=== PATIENT | male | born 1945 | race African-American/Black ===

== ENCOUNTER 2016-12-16 01:13 | Emergency (ER) | payer OTHER ==
[~2016-12-16] VITALS: Ht 177.8 cm; Wt 55.0 kg
[2016-12-16 01:21] VITALS: BP 136/75; PULSE 104; RESP 16; TEMP 98.6; O2SAT 99
[2016-12-16] MEDS ORDERED: methylPREDNISolone SOD SUCC 125 MG/2 ML VIAL IVP ONE (01:30)
[2016-12-16] MEDS ORDERED: LOSA50TA2 PO (01:31)
[2016-12-16] MEDS ORDERED: MULT-65 PO (01:31)
[2016-12-16] MEDS ORDERED: TAMS0.4C4 PO (01:31)
--- NOTE | 2016-12-16 01:34 | PD ---
HPI Chief Complaint: Respiratory Distress Time Seen by Provider: 01:20 Travel History International Travel<30 days: No Contact w/Intl Traveler<30days: No Traveled to known affect area: No History of Present Illness HPI C/O SOB WORSENING OVER LAST 2 DAYS, THOUGH HE STATES IT HAS BEEN BOTHERING HIM SINCE HE HAD STOMACH CANCER REMOVAL 2 MONTHS AGO. DENIES FEVER/N/V/D/CP/ABD PAIN/ BUT DOES STATE THAT HE HAS NONPROD COUGH PFSH Past Medical History Cancer: Yes (STOMACH) Diminished Hearing: No Hypertension: Yes Tetanus Vaccination: Unknown Past Surgical History Abdominal Surgery: Yes (STOMACH REMOVAL, [place]) Other Surgery: Yes (RODS IN BACK.) Social History Alcohol Use: Yes (BEER 2-3 TIMES A WEEK.) Tobacco Use: Yes Substance Use: Yes (MARIJUIANA) Allergies-Medications (Allergen,Severity, Reaction): Coded Allergies: No Known Allergies (Unverified , 12/16/16) Reported Meds & Prescriptions Reported Meds & Active Scripts Active Reported Multi-Vitamin Daily (Multiple Vitamin) 1 Tab Tab 1 Tab PO DAILY Losartan-Hydrochlorothiazide 50-12.5 Mg Tab 1 Tab PO DAILY Tamsulosin (Tamsulosin HCl) 0.4 Mg Cap 0.4 Mg PO HS Review of Systems Respiratory: Positive: Cough, Shortness of Breath, Wheezing Physical Exam Narrative GENERAL: SKIN: Warm and dry. HEAD: Atraumatic. Normocephalic. EYES: Pupils equal and round. No scleral icterus. No injection or drainage. ENT: No nasal bleeding or discharge. Mucous membranes pink and moist. NECK: Trachea midline. No JVD. CARDIOVASCULAR: Regular rate and rhythm. RESPIRATORY: No accessory muscle use. MILD SCATTERED WHEEZES, CRACKLES TO RT LUNG MID TO LOWER ZONES GASTROINTESTINAL: Abdomen soft, non-tender, nondistended. Hepatic and splenic margins not palpable. MUSCULOSKELETAL: Extremities without clubbing, cyanosis, or edema. No obvious deformities. NEUROLOGICAL: Awake and alert. No obvious cranial nerve deficits. Motor grossly within normal limits. Five out of 5 muscle strength in the arms and legs. Normal speech. PSYCHIATRIC: Appropriate mood and affect; insight and judgment normal. Data Data Last Documented VS Vital Signs Date Time Temp Pulse Resp B/P Pulse Ox O2 Delivery O2 Flow Rate FiO2 12/16/16 01:24 100 Nasal Cannula 2 12/16/16 01:21 98.6 104 16 136/75 Orders Complete Blood Count With Diff (12/16/16 01:20) Comprehensive Metabolic Panel (12/16/16 01:20) B-Type Natriuretic Peptide (12/16/16 01:20) Act Partial Throm Time (Ptt) (12/16/16 01:20) Prothrombin Time / Inr (Pt) (12/16/16 01:20) Ckmb (Isoenzyme) Profile (12/16/16 01:20) Troponin I (12/16/16 01:20) Arterial Blood Gas (Abg) (12/16/16 01:20) Influenzae A/B Antigen (12/16/16 01:20) Iv Access Insert/Monitor (12/16/16 01:20) Electrocardiogram (12/16/16:20) Ecg Monitoring (12/16/16 01:20) Oximetry (12/16/16 01:20) Oxygen Administration (12/16/16 01:20) Chest, Single Ap (12/16/16 01:20) Methylprednisolone So Succ Inj (Solumedr (12/16/16 01:30) Albuterol Neb (Albuterol Neb) (12/16/16 01:30) D-Dimer (12/16/16 01:22) CKMB (12/16/16 01:30) CKMB% (12/16/16 01:30) Ct Pulmonary Angiogram (12/16/16 04:24) Iohexol 350 Inj (Omnipaque 350 Inj) (12/16/16 04:56) Labs Laboratory Tests Test 12/16/16 01:30 White Blood Count 7.8 TH/MM3 Red Blood Count 3.31 MIL/MM3 Hemoglobin 9.5 GM/DL Hematocrit 29.7 % Mean Corpuscular Volume 89.7 FL Mean Corpuscular Hemoglobin 28.7 PG Mean Corpuscular Hemoglobin 31.9 % Concent Red Cell Distribution Width 17.9 % Platelet Count 304 TH/MM3 Mean Platelet Volume 8.3 FL Neutrophils (%) (Auto) 61.5 % Lymphocytes (%) (Auto) 23.2 % Monocytes (%) (Auto) 14.0 % Eosinophils (%) (Auto) 0.7 % Basophils (%) (Auto) 0.6 % Neutrophils # (Auto) 4.8 TH/MM3 Lymphocytes # (Auto) 1.8 TH/MM3 Monocytes # (Auto) 1.1 TH/MM3 Eosinophils # (Auto) 0.1 TH/MM3 Basophils # (Auto) 0.0 TH/MM3 CBC Comment DIFF FINAL Differential Comment Prothrombin Time 11.2 SEC Prothromb Time International 1.0 RATIO Ratio Activated Partial 25.0 SEC Thromboplast Time D-Dimer Quantitative (PE/DVT) 9.12 MG/L FEU Blood Gas Puncture Site LT RADIAL Blood Gas Patient Temperature 98.6 Blood Gas HCO3 20 mmol/L Blood Gas Base Excess -3.4 mmol/L Blood Gas Oxygen Saturation 98 % Arterial Blood pH 7.44 Arterial Blood Partial 31 mmHg Pressure CO2 Arterial Blood Partial 273 mmHG Pressure O2 Arterial Blood Oxygen Content 13.8 Vol % Arterial Blood 1.6 % Carboxyhemoglobin Arterial Blood Methemoglobin 0.4 % Blood Gas Hemoglobin 9.6 G/DL Blood Gas Inspired Oxygen 21 % Sodium Level 140 MEQ/L Potassium Level 4.1 MEQ/L Chloride Level 107 MEQ/L Carbon Dioxide Level 18.8 MEQ/L Anion Gap 14 MEQ/L Blood Urea Nitrogen 19 MG/DL Creatinine 1.29 MG/DL Estimat Glomerular Filtration 67 ML/MIN Rate Random Glucose 76 MG/DL Calcium Level 7.9 MG/DL Total Bilirubin 0.6 MG/DL Aspartate Amino Transf 227 U/L (AST/SGOT) Alanine Aminotransferase 38 U/L (ALT/SGPT) Alkaline Phosphatase 576 U/L Total Creatine Kinase 432 U/L Creatine Kinase MB LESS THAN 0.5 NG/ML Creatine Kinase MB % 0.1 % Troponin I LESS THAN 0.02 NG/ML B-Type Natriuretic Peptide 67 PG/ML Total Protein 7.4 GM/DL Albumin 2.6 GM/DL MDM Medical Decision Making Medical Screen Exam Complete: Yes Emergency Medical Condition: Yes Medical Record Reviewed: Yes Interpretation(s) NSR 97, LAFB, NO STEMI PATTERN Differential Diagnosis COPD EXAC V PNA V PE V PULM EDEMA V ATYPICAL [place] Narrative Course NO E/O PNA/PULM EDEMA/NOR AZ...ALSO ON CAT SCAN NO PERICARDIAL EFFUSION AND NO PE. PATIENT HAD A COPD EPISODE WHICH CLEARED AND AFTER 5HRS OBSERVATION DID NOT REPEAT WILL D/C HOME WITH INHALER/STEROIDS Diagnosis Primary Impression: COPD FLARE RESOLVED Patient Instructions: COPD (Chronic Obstructive Pulmonary Disease) (ED), General Instructions Scripts Methylprednisolone Dosepak (Medrol Dosepak)4 Mg Dspk4 Mg PO DIRECTED #1 DSPK Per Pharmacist direction Prov:Davin Prabhakar MD 12/16/16 Azithromycin (Zithromax Z-Ilya)250 Mg Brty881 Mg PO DIRECTED #1 DSPK 500 MG (2 tabs) day 1, then 1 tab days 2-5. Prov:Davin Prabhakar MD 12/16/16 Albuterol 6.7 GM Inh (Proventil Hfa 6.7 GM Inh)90 Mcg/Act Aer1 Puff INH Q4H PRN (SHORTNESS OF BREATH) #1 INHALER Prov:Davin Prabhakar MD 12/16/16 Disposition: 01 DISCHARGE HOME Condition: Stable Davin Prabhakar MD Dec 16, 2016 01:34
[2016-12-16 01:40] LABS: BLOOD GAS BASE EXCESS -3.4 mmol/L (-2-2); BLOOD GAS CARBOXYHEMOGLOBIN 1.6 % (0-4); BLOOD GAS HCO3 20 mmol/L (22-26); BLOOD GAS METHEMOGLOBIN 0.4 % (0-2); BLOOD GAS O2 HGB SATURATION 98 % (90-100); BLOOD GAS OXYGEN CONTENT 13.8 Vol % (12.0-20.0); BLOOD GAS PCO2 31 mmHg (38-42); BLOOD GAS PO2 273 mmHG (61-120); BLOOD GAS TOTAL HGB 9.6 G/DL (12.0-16.0); CRITICAL VALUE NO; DRAW SITE LT RADIAL; FIO2 21 %; NUMBER OF ARTERIAL PUNCTURES 1; STAT YES; TEMP CORR TO 98.6; ULNAR PULSE PRESENT
[2016-12-16] MEDS: RESP: ALBUTEROL 2.5 MG/3 ML NEB (SCH) INH (01:43)
[2016-12-16 02:00] VITALS: BP 110/68; PULSE 102; RESP 26; O2SAT 100
--- NOTE | 2016-12-16 02:01 | RADRPT ---
EXAM DATE/TIME: 12/16/2016 01:42 [facility] COMPARISON: No previous studies available for comparison. INDICATIONS : Shortness of breath. MEDICAL HISTORY : Hypertension. Carcinoma, gastric. SURGICAL HISTORY : Carcinoma related stomach surgery ENCOUNTER: Initial ACUITY: 1 day PAIN SCORE: 0/10 LOCATION: Bilateral chest FINDINGS: A single view of the chest demonstrates the lungs to be symmetrically hyperaerated without evidence o f mass, infiltrate or effusion. No evidence of pneumothorax. The cardiomediastinal contours are unr emarkable. Both hemidiaphragms well delineated. Osseous structures are intact. CONCLUSION: The lungs are hyperaerated, but clear. Mt Lin MD on December 16, 2016 at 1:59 Board Certified Radiologist. This report was verified electronically.
[2016-12-16 02:03] LABS: PROTHROMBIN TIME - PATIENT 11.2 SEC (9.8-11.6)
[2016-12-16 02:07] LABS: AUTOMATED NEUTROPHIL # 4.8 TH/MM3 (1.8-7.7); BASOPHIL % 0.6 % (0.0-2.0); EOSINOPHIL # 0.1 TH/MM3 (0-0.4); EOSINOPHIL % 0.7 % (0.0-4.0); HEMATOCRIT 29.7 % (39.0-51.0); HEMO FLAGS DIFF FINAL; LYMPH % 23.2 % (9.0-44.0); LYMPHOCYTE # 1.8 TH/MM3 (1.0-4.8); MEAN CELL VOLUME 89.7 FL (80.0-100.0); MEAN CORPUSCULAR HEMOGLOBIN 28.7 PG (27.0-34.0); MEAN CORPUSCULAR HGB CONC 31.9 % (32.0-36.0); NEUT % 61.5 % (16.0-70.0); PLATELET COUNT 304 TH/MM3 (150-450); RED BLOOD COUNT 3.31 MIL/MM3 (4.50-5.90); RED CELL DISTRIBUTION WIDTH 17.9 % (11.6-17.2); WHITE BLOOD COUNT 7.8 TH/MM3 (4.0-11.0)
[2016-12-16 02:08] LABS: ALT (GPT) 38 U/L (12-78); ANION GAP 14 MEQ/L (5-15); AST (GOT) 227 U/L (15-37); BICARBONATE 18.8 MEQ/L (21.0-32.0); BLOOD UREA NITROGEN 19 MG/DL (7-18); CHLORIDE 107 MEQ/L (98-107); GLOMERULAR FILTRATION RATE 67 ML/MIN (>89); POTASSIUM 4.1 MEQ/L (3.5-5.1); SODIUM (NA) 140 MEQ/L (136-145)
[2016-12-16 02:12] LABS: ALKALINE PHOSPHATASE 576 U/L (45-117); CREATINE KINASE 432 U/L (39-308); TOTAL BILIRUBIN ADULT 0.6 MG/DL (0.2-1.0)
[2016-12-16 02:25] LABS: CKMB LESS THAN 0.5 NG/ML (0.5-3.6)
[2016-12-16 03:00] VITALS: BP 118/69; PULSE 100; RESP 26; O2SAT 100
[2016-12-16 04:00] VITALS: BP 128/75; PULSE 94; RESP 26; O2SAT 99
[2016-12-16] MEDS ORDERED: IOHEXOL 350 MG/ML 10 ML VIAL (for RAD DIAG) IV ONE (04:56)
[2016-12-16 05:30] VITALS: BP 122/70; PULSE 70; RESP 21; O2SAT 100
--- NOTE | 2016-12-16 05:54 | RADRPT ---
EXAM DATE/TIME: 12/16/2016 04:46 [facility] COMPARISON: No previous studies available for comparison. INDICATIONS : Shortness of breath with elevated D-Dimer. IV CONTRAST: 70 cc Omnipaque 350 (iohexol) IV RADIATION DOSE: 9.12 CTDIvol (mGy) MEDICAL HISTORY : Hypertension. Carcinoma, gastric. SURGICAL HISTORY : None. ENCOUNTER: Initial ACUITY: 1 day PAIN SCALE: 0/10 LOCATION: chest TECHNIQUE: Volumetric scanning of the chest was performed using a pulmonary embolism protocol MIP images were re constructed. Using automated exposure control and adjustment of the mA and/or kV according to patien t size, radiation dose was kept as low as reasonably achievable to obtain optimal diagnostic quality images. DICOM format image data is available electronically for review and comparison. FINDINGS: PULMONARY ARTERIES: No filling defects are seen in the pulmonary arteries through the segmental level. LUNGS: There is no consolidation or pneumothorax . No concerning pulmonary nodule is visualized. Anastomos is suture about the distance esophagus. PLEURAE: There is no pleural thickening or pleural effusion. MEDIASTINUM: There is good visualization of the great vessels of the middle mediastinum. No evidence of mediastin al or hilar adenopathy/mass. CONCLUSION: The study is negative for pulmonary embolism. Mt Lin MD on December 16, 2016 at 4:58 Board Certified Radiologist. This report was verified electronically.
[2016-12-16] MEDS ORDERED: ZITHTAB PO (06:05)
[2016-12-16] MEDS ORDERED: ALBU6.7H INH (06:05)
[2016-12-16] MEDS ORDERED: MEDR4PAK PO (06:05)
--- NOTE | 2016-12-16 07:50 | EKG ---
Date Performed: 12/16/2016 Time Performed: 01:55:06 PTAGE: 71 years EKG: Sinus rhythm WITH SINUS ARRHYTHMIA LEFT ANTERIOR FASCICULAR BLOCK ABNORMAL ECG PREVIOUS TRACING : 01/17/2000 06.24 DOCTOR: Glynn Hayes Interpretating Date/Time 12/16/2016 07:47:48
== END 2016-12-16 06:55 | disposition home or self-care (01) ==
LOC: NEPE 01:13
DX: J44.1 Chronic obstructive pulmonary disease with (acute) exacerbation (principal); I10 Essential (primary) hypertension; Z79.899 Other long term (current) drug therapy; Z72.0 Tobacco use; Z85.028 Personal history of other malignant neoplasm of stomach
CPT/HCPCS: 36600; 71010; 71275; 80053; 82550; 82552; 82805; 83880; 84484; 85025; 85379; 85610; 85730; 87804; 93005; 94640; 94664; 96374; 99285; J2930; J7613; Q9967

== ENCOUNTER 2017-01-03 14:09 | Inpatient (IN) | payer OTHER, MEDICARE ==
[~2017-01-03] VITALS: Ht 180.3 cm; Wt 60.1 kg
[~2017-01-03 14:09] MED LIST: ALBU6.7H INH; LOSA50TA2 PO; MEDR4PAK PO; MULT-65 PO; TAMS0.4C4 PO; ZITHTAB PO
[2017-01-03 14:20] VITALS: BP 135/78; PULSE 89; RESP 17; TEMP 98.6; O2SAT 99
[2017-01-03 15:08] VITALS: BP 114/65; PULSE 87; RESP 18; O2SAT 99
[2017-01-03] MEDS ORDERED: SODIUM CHLOR 0.9% 1000 ML INJ 1,000 ML IV SCH (15:08)
[2017-01-03] MEDS ORDERED: DIATRIZOATE MEGLUM/DIATRIZOATE SOD 9 ML CUP ONE (15:13)
[2017-01-03] MEDS ORDERED: ONDANSETRON HCL 4 MG/2 ML VIAL IVP ONE (15:15)
[2017-01-03] MEDS ORDERED: HYDROmorphone HCL PF 1 MG/ML VIAL IVS ONE ×2 (15:15→19:00)
[2017-01-03] MEDS ORDERED: SODIUM CHLORIDE 0.9% FLUSH 10 ML FLUSH IV FLUSH PRN ×2 (15:15→19:45)
--- NOTE | 2017-01-03 15:25 | PD ---
HPI Chief Complaint: Abdominal Pain Time Seen by Provider: 15:00 Travel History International Travel<30 days: No Contact w/Intl Traveler<30days: No Traveled to known affect area: No History of Present Illness HPI 71-year-old male with a history of gastric cancer, status post gastrectomy February 2016, who presents today with complaints of abdominal pain. Patient reports severe right sided of bowel pain. He also reports feeling lumps in his abdominal area that were not there couple weeks ago. He denies any fevers, chills. He denies any nausea or vomiting. He does state he has loose stools which is chronic in nature. There is no other complaints time my examination. PFSH Past Medical History Cancer: Yes (STOMACH) Cardiovascular Problems: Yes (CHF) Chemotherapy: No Diminished Hearing: No Hypertension: Yes Past Surgical History Abdominal Surgery: Yes (STOMACH REMOVAL, [place]) Other Surgery: Yes (RODS IN BACK.) Social History Alcohol Use: Yes (BEER 2-3 TIMES A WEEK.) Tobacco Use: Yes (2-3 cigs a week) Substance Use: Yes (MARIJUIANA every so often) Allergies-Medications (Allergen,Severity, Reaction): Coded Allergies: No Known Allergies (Unverified , 12/16/16) Reported Meds & Prescriptions Reported Meds & Active Scripts Active Medrol Dosepak (Methylprednisolone) 4 Mg Dspk 4 Mg PO DIRECTED Per Pharmacist direction Zithromax Z-Ilya (Azithromycin) 250 Mg Dspk 250 Mg PO DIRECTED 500 MG (2 tabs) day 1, then 1 tab days 2-5. Proventil Hfa 6.7 GM Inh (Albuterol Sulfate) 90 Mcg/Act Aer 1 Puff INH Q4H PRN Reported Multi-Vitamin Daily (Multiple Vitamin) 1 Tab Tab 1 Tab PO DAILY Losartan-Hydrochlorothiazide 50-12.5 Mg Tab 1 Tab PO DAILY Tamsulosin (Tamsulosin HCl) 0.4 Mg Cap 0.4 Mg PO HS Review of Systems Except as stated in HPI: all other systems reviewed are Neg General / Constitutional: No: Fever, Chills HENT: No: Headaches, Neck Pain Cardiovascular: No: Chest Pain or Discomfort, Palpitations Respiratory: No: Cough, Shortness of Breath Gastrointestinal: Positive: Diarrhea, Abdominal Pain (chronically loose stools. ), No: Nausea, Vomiting Genitourinary: No: Frequency, Dysuria Musculoskeletal: No: Weakness, Pain Neurologic: No: Weakness, Dizziness, Headache Physical Exam Narrative GENERAL: Well-developed well-nourished male in no acute respiratory distress. SKIN: Focused skin assessment warm/dry. HEAD: Atraumatic. Normocephalic. EYES: No scleral icterus. No injection or drainage. ENT: No nasal bleeding or discharge. Mucous membranes pink and moist. NECK: Trachea midline. No JVD. Supple. CARDIOVASCULAR: Regular rate and rhythm. No murmur appreciated. RESPIRATORY: No accessory muscle use. Clear to auscultation. GASTROINTESTINAL: Abdomen slightly distended with hardness palpated in the right lateral abdominal wall. No redness or drainage. There was tenderness to palpation. MUSCULOSKELETAL: No obvious deformities. No clubbing. No cyanosis. No edema. NEUROLOGICAL: Awake and alert. No obvious cranial nerve deficits. Motor grossly within normal limits. Normal speech. Data Data Last Documented VS Vital Signs Date Time Temp Pulse Resp B/P Pulse Ox O2 Delivery O2 Flow Rate FiO2 01/03/17 15:26 18 98 Room Air 01/03/17 15:08 87 114/65 01/03/17 14:20 98.6 Orders Complete Blood Count With Diff (01/03/17 15:08) Comprehensive Metabolic Panel (01/03/17 15:08) Lipase (01/03/17 15:08) Urinalysis - C+S If Indicated (01/03/17 15:08) Iv Access Insert/Monitor (01/03/17 15:08) Ecg Monitoring (01/03/17 15:08) Oximetry (01/03/17 15:08) Ondansetron Inj (Zofran Inj) (01/03/17 15:15) Sodium Chlor 0.9% 1000 Ml Inj (Ns 1000 M (01/03/17 15:08) Sodium Chloride 0.9% Flush (Ns Flush) (01/03/17 15:15) Hydromorphone Pf Inj (Dilaudid Pf Inj) (01/03/17 15:15) Diatrizoate Liq ( Gastroview Liq) (01/03/17 15:13) Oral Contrast - Adult (01/03/17 15:30) Electrocardiogram (01/03/17 15:00) Ct Abd/Pel W/O Iv Contrast (01/03/17 17:33) Hydromorphone Pf Inj (Dilaudid Pf Inj) (01/03/17 19:00) Admit Order (Ed Use Only) (01/03/17 19:03) Labs Laboratory Tests Test 01/03/17 01/03/17 15:15 16:00 White Blood Count 7.5 TH/MM3 Red Blood Count 3.20 MIL/MM3 Hemoglobin 9.3 GM/DL Hematocrit 29.8 % Mean Corpuscular Volume 93.4 FL Mean Corpuscular Hemoglobin 29.0 PG Mean Corpuscular Hemoglobin 31.1 % Concent Red Cell Distribution Width 18.2 % Platelet Count 226 TH/MM3 Mean Platelet Volume 8.2 FL Neutrophils (%) (Auto) 70.2 % Lymphocytes (%) (Auto) 11.6 % Monocytes (%) (Auto) 16.4 % Eosinophils (%) (Auto) 0.3 % Basophils (%) (Auto) 1.5 % Neutrophils # (Auto) 5.3 TH/MM3 Lymphocytes # (Auto) 0.9 TH/MM3 Monocytes # (Auto) 1.2 TH/MM3 Eosinophils # (Auto) 0.0 TH/MM3 Basophils # (Auto) 0.1 TH/MM3 CBC Comment DIFF FINAL Differential Comment Sodium Level 139 MEQ/L Potassium Level 4.3 MEQ/L Chloride Level 108 MEQ/L Carbon Dioxide Level 13.9 MEQ/L Anion Gap 17 MEQ/L Blood Urea Nitrogen 33 MG/DL Creatinine 2.53 MG/DL Estimat Glomerular Filtration 31 ML/MIN Rate Random Glucose 73 MG/DL Calcium Level 6.2 MG/DL Protein Corrected Calcium 6.2 MG/DL Total Bilirubin 1.0 MG/DL Aspartate Amino Transf 601 U/L (AST/SGOT) Alanine Aminotransferase 101 U/L (ALT/SGPT) Alkaline Phosphatase 508 U/L Total Protein 7.2 GM/DL Albumin 2.1 GM/DL Lipase 206 U/L Urine Color YELLOW Urine Turbidity HAZY Urine pH 5.5 Urine Specific [place] 1.023 Urine Protein 30 mg/dL Urine Glucose (UA) NEG mg/dL Urine Ketones NEG mg/dL Urine Occult Blood SMALL Urine Nitrite NEG Urine Bilirubin NEG Urine Urobilinogen 4.0 MG/DL Urine Leukocyte Esterase NEG Urine RBC 2 /hpf Urine WBC 4 /hpf Urine Squamous Epithelial 1 /hpf Cells Urine Amorphous Sediment RARE Urine Bacteria OCC /hpf Urine Hyaline Casts 17 /lpf Urine Mucus FEW /lpf Microscopic Urinalysis Comment CULT NOT INDICATED MDM Medical Decision Making Medical Screen Exam Complete: Yes Emergency Medical Condition: Yes Differential Diagnosis Recurrent abdominal/gastric cancer versus bowel obstruction versus pancreatitis Narrative Course 71-year-old male with a history of gastric cancer, presents today with worsening abdominal pain. The patient denies any fevers, chills. He denies any nausea vomiting. He does report loose stools that is not new. The patient has elevated liver enzymes. His protein corrected calcium was also 6.2. CT scan of the abdomen pelvis with oral contrast only shows what appears to be metastatic disease to his liver. There is also questionable pancreatic duct dilatation. He has received 2 doses of IV pain medication. There is a call out to the [facility] for admission. Diagnosis Primary Impression: Abdominal pain Additional Impressions: Metastatic adenocarcinoma Hypocalcemia Anemia Admitting Information Admitting Physician Requests: Admit Tarun Talamantes MD Jan 03, 2017 15:24
[2017-01-03 15:26] VITALS: RESP 18; O2SAT 98
[2017-01-03 16:12] LABS: AUTOMATED NEUTROPHIL # 5.3 TH/MM3 (1.8-7.7); BASOPHIL # 0.1 TH/MM3 (0-0.2); BASOPHIL % 1.5 % (0.0-2.0); EOSINOPHIL % 0.3 % (0.0-4.0); HEMATOCRIT 29.8 % (39.0-51.0); HEMO FLAGS DIFF FINAL; LYMPH % 11.6 % (9.0-44.0); LYMPHOCYTE # 0.9 TH/MM3 (1.0-4.8); MEAN CELL VOLUME 93.4 FL (80.0-100.0); MEAN CORPUSCULAR HGB CONC 31.1 % (32.0-36.0); MONO % 16.4 % (0.0-8.0); NEUT % 70.2 % (16.0-70.0); PLATELET COUNT 226 TH/MM3 (150-450); RED CELL DISTRIBUTION WIDTH 18.2 % (11.6-17.2); WHITE BLOOD COUNT 7.5 TH/MM3 (4.0-11.0)
[2017-01-03 16:26] LABS: BACTERIA, URINE OCC /hpf; BLOOD, URINE SMALL (NEG); COMMENT (UR) CULT NOT INDICATED; CULTURE IF INDICATED CULT NOT INDICATED; GLUCOSE,URINE NEG (NEG); HYALINE CAST, URINE 17 /lpf (RARE); KETONE, URINE NEG (NEG); MUCUS URINE FEW /lpf (OCC); NITRITE,URINE NEG (NEG); PH, URINE 5.5 (5.0-8.5); SQUAMOUS EPITHELIAL CELL URINE 1 /hpf (0-5); URINE COLOR YELLOW (YELLW/STRAW)
[2017-01-03 16:31] LABS: BICARBONATE 13.9 MEQ/L (21.0-32.0); POTASSIUM 4.3 MEQ/L (3.5-5.1)
[2017-01-03 16:46] LABS: CALCIUM-PROTEIN CORRECTED 6.2 MG/DL (8.5-10.1)
--- NOTE | 2017-01-03 18:47 | RADRPT ---
EXAM DATE/TIME: 01/03/2017 18:21 [facility] COMPARISON: CT PULMONARY ANGIOGRAM, December 16, 2016, 4:46. INDICATIONS : Abdomen pain. ORAL CONTRAST: Prescribed oral contrast ingested. RADIATION DOSE: 7.66 CTDIvol (mGy) MEDICAL HISTORY : Cardiovascular disease. Carcinoma, gastric. Congestive heart failure. SURGICAL HISTORY : None. Stomach ENCOUNTER: Initial ACUITY: 1 day PAIN SCALE: 4/10 LOCATION: Bilateral abdomen TECHNIQUE: Volumetric scanning of the abdomen and pelvis was performed. Using automated exposure control and ad justment of the mA and/or kV according to patient size, radiation dose was kept as low as reasonably achievable to obtain optimal diagnostic quality images. DICOM format image data is available electro nically for review and comparison. FINDINGS: The patient is status post partial gastrectomy and there is contrast seen within the esophagus. The l iver is enlarged and multiple hypodense ill-defined masses are suspected throughout the hepatic paren chyma. Spleen unremarkable. The pancreatic duct is mildly dilated up to 4 mm. Adrenal glands, kidneys unremarkable. Urinary bladder unremarkable. There is a small amount of free fluid in the pelvis. No evidence of bowel obstruction. There is streak artifact from L4-S1 posterior daniel and transpedicular s crew fixation. There is patchy atelectasis versus consolidation at the right lung base. CONCLUSION: 1. Hepatomegaly and ill-defined hepatic masses are suspected diffusely and concerning for metastatic disease. This is incompletely evaluated without contrast. 2. Postsurgical changes to the stomach with reflux of contrast into the esophagus. 3. Right basilar atelectasis versus airspace disease. 4. Ascites. 5. Mild dilatation of the pancreatic duct identified. Fredy Horn MD on January 03, 2017 at 18:42 Board Certified Radiologist. This report was verified electronically.
[2017-01-03] MEDS ORDERED: ONDANSETRON HCL 4 MG/2 ML VIAL IVP PRN (19:45)
[2017-01-03] MEDS ORDERED: NALOXONE HCL 0.4 MG/ML AMP IV PRN (19:45)
[2017-01-03 19:47] VITALS: BP 127/70; PULSE 70; RESP 16; O2SAT 100
[2017-01-03] MEDS ORDERED: CALCIUM GLUCONATE 10% 1 GM/10 ML VIAL IV PUSH ONE (20:15)
[2017-01-03 20:28] VITALS: BP 131/74; PULSE 63; RESP 16; O2SAT 100
[2017-01-03] MEDS ORDERED: CALCIUM GLUCONATE INJ 2 GM in SODIUM CHLORIDE 0.9% INJ 100 ML IV ONE (21:00)
--- NOTE | 2017-01-03 21:15 | HHI.HP ---
HPI Service [facility] Primary [facility] Physician Unknown Admission Diagnosis abdominal pain, metastatic adenocarcinoma, hypocalcemia, acute on ch Diagnoses: Chief Complaint: sob, and bilateral lower extremity swelling. Travel History International Travel<30 Days: No Contact w/Intl Traveler <30 Da: No Traveled to Known Affected Are: No History of Present Illness Written by KARIN Harris acting as scribe for [Daily] on 01/03/17 at 21: 06. 71 y/o male with a history of gastric cancer, htn, bph, and copd presented to the ED with complaints of sob all the time, and swelling in his legs for the last 2 months. He denies any abdominal pain, nausea or vomiting, He states he has chronic diarrhea since his gastrectomy. He also complains of red stools in the toilet bowel. Patient is a poor historian and is unable to recall recent events, patient did receive Dilaudid prior to examination and may be contributing to the usableness to recall information. He denies any chest pain, or calf pain. Patient states he lives alone. Review of Systems Constitutional: DENIES: Fever, Chills Respiratory: COMPLAINS OF: Shortness of breath, DENIES: Cough Cardiovascular: COMPLAINS OF: Lower Extremity Edema, DENIES: Chest pain Gastrointestinal: COMPLAINS OF: Bloody stools, DENIES: Abdominal pain, Nausea , Vomiting Genitourinary: DENIES: Hematuria, Dysuria Musculoskeletal: DENIES: Back pain, Neck pain Integumentary: DENIES: Rash Hematologic/lymphatic: DENIES: Lymphadenopathy Neurologic: DENIES: Headache, Localized weakness Past Family Social History Past Medical History gastric cancer htn bph copd Past Surgical History Gastrectomy Feb 2016 Rods in back Reported Medications Reported Meds & Active Scripts Active Medrol Dosepak (Methylprednisolone) 4 Mg Dspk 4 Mg PO DIRECTED Per Pharmacist direction Zithromax Z-Ilya (Azithromycin) 250 Mg Dspk 250 Mg PO DIRECTED 500 MG (2 tabs) day 1, then 1 tab days 2-5. Proventil Hfa 6.7 GM Inh (Albuterol Sulfate) 90 Mcg/Act Aer 1 Puff INH Q4H PRN Reported Multi-Vitamin Daily (Multiple Vitamin) 1 Tab Tab 1 Tab PO DAILY Losartan-Hydrochlorothiazide 50-12.5 Mg Tab 1 Tab PO DAILY Tamsulosin (Tamsulosin HCl) 0.4 Mg Cap 0.4 Mg PO HS Allergies: Coded Allergies: No Known Allergies (Unverified , 12/16/16) Active Ordered Medications Current Medications Medications (Trade) Dose Ordered Sig/Musa Route Start Time Stop Time Status Last Admin (NS 1000 ml Inj) 1,000 ml @ 125 mls/hr Q8H IV 01/03/17 15:08 01/03/17 23:07 01/03/17 15:24 (NS Flush) 2 ml UNSCH PRN IV FLUSH 01/03/17 19:45 (NS Flush) 2 ml BID IV FLUSH 01/03/17 21:00 (Zofran Inj) 4 mg Q6H PRN IVP 01/03/17 19:45 Naloxone HCl 0.4 mg 0.4 mg UNSCH PRN IV 01/03/17 19:45 (Calcium Gluconate Inj/NS Inj) 120 ml @ 120 mls/hr ONCE ONCE IV 01/03/17 21:00 01/03/17 21:59 Family History Cancer runs in his family, but is unsure what kind. Social History Tobacco use: 2-3 cigarette after surgery in February, prior 1 ppd Alcohol use: Denies Illicit drug use: Denies He lives alone, sister lives in [facility], children live in [place] Physical Exam Vital Signs Vital Signs Date Time Temp Pulse Resp B/P Pulse Ox O2 Delivery O2 Flow Rate FiO2 01/03/17 20:28 63 16 131/74 100 Room Air 01/03/17 19:48 16 01/03/17 19:47 70 16 127/70 100 Room Air 01/03/17 15:26 18 98 Room Air 01/03/17 15:08 87 18 114/65 99 Room Air 01/03/17 14:58 18 01/03/17 14:20 98.6 89 17 135/78 99 Physical Exam GENERAL: This is a well-nourished, well-developed patient, who is short of breath. SKIN: No rashes, ecchymoses or lesions. Cool and dry. HEAD: Atraumatic. Normocephalic. EYES: Pupils equal round and reactive. Extraocular motions intact. No scleral icterus. No injection or drainage. ENT: Nose without bleeding, purulent drainage or septal hematoma. Airway patent. NECK: Trachea midline. No JVD or lymphadenopathy. Supple, nontender, no meningeal signs. CARDIOVASCULAR: Regular rate and rhythm without murmurs, gallops, or rubs. RESPIRATORY: Clear to auscultation. Breath sounds equal bilaterally. No wheezes , rales, or rhonchi. GASTROINTESTINAL: Abdomen soft, non-tender, nondistended. No hepato-splenomegaly , or palpable masses. No guarding. MUSCULOSKELETAL:Bilateral +1 pedal edema. No calf tenderness NEUROLOGICAL: Awake, alert and disoriented at times. Motor and sensory grossly within normal limits. Normal speech. Laboratory Laboratory Tests Test 01/03/17 01/03/17 15:15 16:00 White Blood Count 7.5 Red Blood Count 3.20 Hemoglobin 9.3 Hematocrit 29.8 Mean Corpuscular Volume 93.4 Mean Corpuscular Hemoglobin 29.0 Mean Corpuscular Hemoglobin 31.1 Concent Red Cell Distribution Width 18.2 Platelet Count 226 Mean Platelet Volume 8.2 Neutrophils (%) (Auto) 70.2 Lymphocytes (%) (Auto) 11.6 Monocytes (%) (Auto) 16.4 Eosinophils (%) (Auto) 0.3 Basophils (%) (Auto) 1.5 Neutrophils # (Auto) 5.3 Lymphocytes # (Auto) 0.9 Monocytes # (Auto) 1.2 Eosinophils # (Auto) 0.0 Basophils # (Auto) 0.1 CBC Comment DIFF FINAL Differential Comment Sodium Level 139 Potassium Level 4.3 Chloride Level 108 Carbon Dioxide Level 13.9 Anion Gap 17 Blood Urea Nitrogen 33 Creatinine 2.53 Estimat Glomerular Filtration 31 Rate Random Glucose 73 Calcium Level 6.2 Protein Corrected Calcium 6.2 Total Bilirubin 1.0 Aspartate Amino Transf 601 (AST/SGOT) Alanine Aminotransferase 101 (ALT/SGPT) Alkaline Phosphatase 508 Total Protein 7.2 Albumin 2.1 Lipase 206 Urine Color YELLOW Urine Turbidity HAZY Urine pH 5.5 Urine Specific [place] 1.023 Urine Protein 30 Urine Glucose (UA) NEG Urine Ketones NEG Urine Occult Blood SMALL Urine Nitrite NEG Urine Bilirubin NEG Urine Urobilinogen 4.0 Urine Leukocyte Esterase NEG Urine RBC 2 Urine WBC 4 Urine Squamous Epithelial 1 Cells Urine Amorphous Sediment RARE Urine Bacteria OCC Urine Hyaline Casts 17 Urine Mucus FEW Microscopic Urinalysis Comment CULT NOT INDICATED Result Diagram: 01/03/17 1515 01/03/17 1515 Imaging Last Impressions Abdomen/Pelvis CT 01/03/17 1733 Signed Impressions: Service Date/Time: Tuesday, January 03, 2017 18:21 - CONCLUSION: 1. Hepatomegaly and ill-defined hepatic masses are suspected diffusely and concerning for metastatic disease. This is incompletely evaluated without contrast. 2. Postsurgical changes to the stomach with reflux of contrast into the esophagus. 3. Right basilar atelectasis versus airspace disease. 4. Ascites. 5. Mild dilatation of the pancreatic duct identified. Fredy Horn MD Assessment and Plan Problem List: (1) Metastatic adenocarcinoma ICD Code: C79.9 Status: Acute (2) Abdominal pain ICD Code: R10.9 Status: Acute (3) Hypocalcemia ICD Code: E83.51 Status: Acute (4) Lower extremity edema ICD Code: R60.0 Status: Acute (5) Dyspnea ICD Code: R06.00 Status: Acute (6) Low bicarbonate level ICD Code: E87.8 Status: Acute Assessment and Plan 71 y/o male with a history of gastric cancer, htn, bph, and copd presented to the ED with complaints of sob all the time, and swelling in his legs for the last 2 months. Abdominal pain with transaminitis, possible metastatic adenocarcinoma, patient with a history of gastric cancer AST 601, ALT [address] shows Hepatomegaly and ill-defined hepatic masses are suspected diffusely and concerning for metastatic disease. -Consult medical oncologist for recommendations Dyspnea, chronic for the last 2 months -Chest x ray ordered -O2 as needed - likely due to metabolic acidosis with respiratory compensation contributing to dyspnea- correct with bicarb drip, ivp as needed Hypocalcemia/ low bicarb, calcium 6.2, bicarb 13.9 -2 grams calcium gluconate ordered -IVF with D5 and bicarb -BMP in AM, and trend - calcium carbonate po; aggressive iv replacements Lower extremity edema, +1 pedal edema noted -Bilateral DVT US ordered due to patients history of cancer -Elevated while in bed Hematochezia, patient states red stools and blood in toilet bowl Hgb 9.3 -BMP in AM, and trend -Hemoccult stool HTN, chronic, currently stable -Awaiting medication reconciliation, will order home medications when complete -Will order PRNs if needed DVT prophylaxis: SCDs This note was transcribed by scribe [Carine dEwards]. I, Dr. Destiney Ambrosio personally performed the history, physical exam, and medical decision making; and confirmed the accuracy of the information in the transcribed note. Authenticated by Dr. Destiney Ambrosio on 01/03/17 at 21:06. Discussed Condition With Patient, RN and ER physician Physician Certification 2 Midnight Certification Type: Admission for Inpatient Services Order for Inpatient Services The services are ordered in accordance with Medicare regulations or non- Medicare payer requirements, as applicable. In the case of services not specified as inpatient-only, they are appropriately provided as inpatient services in accordance with the 2-midnight benchmark. Estimated LOS (days): 3 days is the estimated time the patient will need to remain in the hospital, assuming treatment plan goals are met and no additional complications. Post-Hospital Plan: Not yet determined Carine Edwards Jan 03, 2017 21:15 Destiney Ambrosio MD Jan 04, 2017 07:24
--- NOTE | 2017-01-03 21:50 | RADRPT ---
EXAM DATE/TIME: 01/03/2017 21:15 [facility] COMPARISON: CHEST SINGLE AP, December 16, 2016, 1:42. INDICATIONS : Shortness of breath. MEDICAL HISTORY : Cardiovascular disease. Carcinoma, gastric. Congestive heart failure. SURGICAL HISTORY : None. ENCOUNTER: Initial ACUITY: 1 day PAIN SCORE: 0/10 LOCATION: Bilateral chest FINDINGS: Moderate elevation of the right hemidiaphragm with bilateral basilar atelectasis. Heart size normal. CONCLUSION: Basilar atelectasis and elevation of the right hemidiaphragm. Fredy Horn MD on January 03, 2017 at 21:48 Board Certified Radiologist. This report was verified electronically.
[2017-01-03] MEDS: SODIUM BICARBONATE 8.4% INJ 100 MEQ in DEXTROSE 5% IN WATE 1000ML INJ 1,000 ML IV SCH ×2 (22:30)
[2017-01-03] MEDS: SODIUM CHLORIDE 0.9% FLUSH 10 ML FLUSH IV FLUSH SCH (22:30)
--- NOTE | 2017-01-03 22:36 | RADRPT ---
EXAM DATE/TIME: 01/03/2017 21:52 [facility] COMPARISON: No previous studies available for comparison. INDICATIONS : Bilateral leg swelling. MEDICAL HISTORY : Hypertension. Congestive heart failure. Stomach cancer. Melena. Dyspnea. SURGICAL HISTORY : Stomach removal. ENCOUNTER: Initial ACUITY: 1 day PAIN SCORE: 7/10 LOCATION: Bilateral legs. TECHNIQUE: Venous ultrasound of the left and right leg was performed from the inguinal ligament to the proximal calf. Real-time, color Doppler and spectral tracing, compression and augmentation techniques were us ed. FINDINGS: RIGHT LEG: There is normal compressibility of the deep venous system from the inguinal region to the proximal ca lf. No echogenic clot is seen in the lumen of the common femoral, femoral, popliteal, and posterior tibial veins. There is a normal response of the venous system to proximal and distal augmentation an d respiration. LEFT LEG: There is normal compressibility of the deep venous system from the inguinal region to the proximal ca lf. No echogenic clot is seen in the lumen of the common femoral, femoral, popliteal, and posterior tibial veins. There is a normal response of the venous system to proximal and distal augmentation an d respiration. CONCLUSION: Normal examination. Fredy Horn MD on January 03, 2017 at 22:34 Board Certified Radiologist. This report was verified electronically.
[2017-01-04] VITALS (8 sets, daily range): BP systolic 114–160; BP diastolic 70–87; PULSE 64–103; RESP 18; TEMP 97.1–99; O2SAT 93–99
[2017-01-04 02:00] LABS: BICARBONATE 11.9 MEQ/L (21.0-32.0); POTASSIUM 5.8 MEQ/L (3.5-5.1)
[2017-01-04] MEDS ORDERED: SODIUM BICARBONATE 8.4% INJ 50 MEQ/50 ML SYR IV PUSH ONE (03:00)
[2017-01-04] MEDS ORDERED: DEXTROSE 50% IN WATER 50 ML VIAL(D50) IV PUSH ONE (03:00)
[2017-01-04] MEDS ORDERED: CALCIUM GLUCONATE INJ 1 GM in SODIUM CHLORIDE 0.9% INJ 100 ML IV ONE ×3 (03:00→18:00)
[2017-01-04] MEDS ORDERED: CALCIUM GLUCONATE 10% 1 GM/10 ML VIAL IV PUSH ONE ×2 (03:00→03:30)
[2017-01-04] MEDS ORDERED: SODIUM POLYSTYRENE SULFONATE SUSP 15 GM/60 ML CUP PO ONE (03:00)
[2017-01-04] MEDS ORDERED: INSULIN HUMAN REGULAR 1,000 UNITS/10 ML VIAL IV PUSH ONE (03:00)
[2017-01-04] MEDS ORDERED: CALCIUM CARBONATE 1.25 GM (CA 500 MG) TAB PO ONE (03:00)
[2017-01-04] MEDS ORDERED: DEXTROSE 50% IN WATER 50 ML SYRINGE IV ONE (03:15)
[2017-01-04 06:50] LABS: AUTOMATED NEUTROPHIL # 6.1 TH/MM3 (1.8-7.7); BASOPHIL % 0.5 % (0.0-2.0); HEMATOCRIT 31.2 % (39.0-51.0); LYMPH % 10.1 % (9.0-44.0); LYMPHOCYTE # 0.8 TH/MM3 (1.0-4.8); MEAN CELL VOLUME 94.6 FL (80.0-100.0); MEAN CORPUSCULAR HGB CONC 31.7 % (32.0-36.0); MONO % 12.1 % (0.0-8.0); NEUT % 77.3 % (16.0-70.0); PLATELET COUNT 219 TH/MM3 (150-450); RED CELL DISTRIBUTION WIDTH 18.5 % (11.6-17.2); WHITE BLOOD COUNT 7.9 TH/MM3 (4.0-11.0)
[2017-01-04 07:12] LABS: HEMO FLAGS AUTO DIFF
[2017-01-04 07:15] LABS: ALT (GPT) 153 U/L (12-78); ANION GAP 19 MEQ/L (5-15); AST (GOT) 936 U/L (15-37); BICARBONATE 12.6 MEQ/L (21.0-32.0); BLOOD UREA NITROGEN 36 MG/DL (7-18); CHLORIDE 107 MEQ/L (98-107); GLOMERULAR FILTRATION RATE 28 ML/MIN (>89); POTASSIUM 5.1 MEQ/L (3.5-5.1); SODIUM (NA) 139 MEQ/L (136-145)
[2017-01-04 07:17] LABS: ALKALINE PHOSPHATASE 494 U/L (45-117); TOTAL BILIRUBIN ADULT 1.1 MG/DL (0.2-1.0)
[2017-01-04 08:56] LABS: KERATOCYTES OCC (NORMAL); OVALOCYTES 1+ (NORMAL); PLATELET ESTIMATE SMEAR NORMAL (NORMAL); PLATELET MORPHOLOGY NORMAL (NORMAL); SCAN/DIFF AUTO DIFF CONFIRMED; TARGET CELLS 1+ (NORMAL)
[2017-01-04] MEDS: CALCIUM CARBONATE 1.25 GM (CA 500 MG) TAB PO SCH ×2 (08:57→20:10)
[2017-01-04] MEDS: SODIUM CHLORIDE 0.9% FLUSH 10 ML FLUSH IV FLUSH SCH ×2 (08:57→20:10)
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
[2017-01-04 12:02] LABS: BICARBONATE 17.5 MEQ/L (21.0-32.0); POTASSIUM 4.3 MEQ/L (3.5-5.1)
[2017-01-04] MEDS ORDERED: ALBUTEROL SULFATE 90 MCG/ACT HFA 8 GM INHALER INH PRN (14:00)
--- NOTE | 2017-01-04 14:00 | HHI.PR ---
Subjective Remarks Pt seen around 1400 Patient tells me he has had a bowel movement and needs his diaper changed. He tells me his pain is a 10 out of 10. Sister and [id number] are in the room. They tell me he was diagnosed with gastric cancer in February of last year. Per sister, he does not have an oncologist. Patient has been experiencing shortness of breath and abdominal pain. Patient tells me that his stomach "hurts" and has been hard. He later tells me that he no longer wants to talk until he is ready. He is focused on getting his diaper changed. I did talk to his nurse and notified her of this. His sister tells me that he does not take any pain medications at home Objective Vitals Vital Signs Date Time Temp Pulse Resp B/P Pulse Ox O2 Delivery O2 Flow Rate FiO2 01/04/17 12:00 97.5 93 18 126/75 99 01/04/17 08:32 98.0 88 18 119/72 98 01/04/17 04:00 97.6 70 18 118/75 99 01/04/17 00:44 Room Air 01/04/17 00:41 97.1 71 18 160/87 96 01/04/17 00:30 69 01/03/17 20:28 63 16 131/74 100 Room Air 01/03/17 19:48 16 01/03/17 19:47 70 16 127/70 100 Room Air 01/03/17 15:26 18 98 Room Air 01/03/17 15:08 87 18 114/65 99 Room Air 01/03/17 14:58 18 01/03/17 14:20 98.6 89 17 135/78 99 I/O 01/03/17 01/03/17 01/03/17 01/04/17 01/04/17 01/04/17 07:00 15:00 23:00 07:00 15:00 23:00 Intake Total 479 ml Balance 479 ml Intake IV Total 479 ml # Voids 0 # Bowel Movements 1 Result Diagram: 01/04/17 0515 01/04/17 1110 Imaging Last Impressions Abdomen/Pelvis CT 01/03/17 3413 Signed Impressions: Service Date/Time: Tuesday, January 03, 2017 18:21 - CONCLUSION: 1. Hepatomegaly and ill-defined hepatic masses are suspected diffusely and concerning for metastatic disease. This is incompletely evaluated without contrast. 2. Postsurgical changes to the stomach with reflux of contrast into the esophagus. 3. Right basilar atelectasis versus airspace disease. 4. Ascites. 5. Mild dilatation of the pancreatic duct identified. Fredy Horn MD Lower Extremity Ultrasound 01/03/17 0000 Signed Impressions: Service Date/Time: Tuesday, January 03, 2017 21:52 - CONCLUSION: Normal examination. Fredy Horn MD Chest X-Ray 01/03/17 0000 Signed Impressions: Service Date/Time: Tuesday, January 03, 2017 21:15 - CONCLUSION: Basilar atelectasis and elevation of the right hemidiaphragm. Fredy Horn MD Objective Remarks GENERAL: thin, malnourished AA male, appears very uncomfortable. SKIN: Cool and dry. HEAD: Atraumatic. Normocephalic. EYES: Extraocular motions intact. ENT: Nose without drainage. Airway patent. NECK: Trachea midline. CARDIOVASCULAR: deferred per pt's request. RESPIRATORY: moving air, on RA. GASTROINTESTINAL: Abdomen very tender to palpation, voluntary guarding, epigastric area somewhat endurated. MUSCULOSKELETAL:moving extremities NEUROLOGICAL: Awake, alert. refusing some of exam. Motor and sensory grossly within normal limits. Normal speech. A/P Problem List: (1) Metastatic adenocarcinoma ICD Code: C79.9 Status: Acute (2) Abdominal pain ICD Code: R10.9 Status: Acute (3) Hypocalcemia ICD Code: E83.51 Status: Acute (4) Lower extremity edema ICD Code: R60.0 Status: Acute (5) Dyspnea ICD Code: R06.00 Status: Acute (6) Low bicarbonate level ICD Code: E87.8 Status: Acute Assessment and Plan 71 y/o male with a history of gastric cancer, htn, bph, and copd presented to the ED with complaints of sob all the time, and swelling in his legs for the last 2 months. Abdominal pain with transaminitis, possible metastatic adenocarcinoma, patient with a history of gastric cancer AST 601, ALT [address] shows Hepatomegaly and ill-defined hepatic masses are suspected diffusely and concerning for metastatic disease. -Consult medical oncologist in place, awaiting recommendations -pain control w percocets and IV dilaudid prn. Palliative care team about to go see patient as well. Discussed w Dr. Fox. Dyspnea, chronic for the last 2 months -Chest x ray atelectasis and elevation of the right hemidiaphragm -O2 as needed - likely due to metabolic acidosis with respiratory compensation contributing to dyspnea- correct with bicarb drip, ivp as needed Hypocalcemia/ low bicarb, calcium 6.2, bicarb 13.9 -s/p 2 grams calcium gluconate -IVF with D5 and bicarb -BMP in AM, and trend - calcium carbonate po; aggressive iv replacements Lower extremity edema, +1 pedal edema noted -Bilateral DVT US neg -Elevated while in bed Hematochezia, patient states red stools and blood in toilet bowl Hgb 9.3 -BMP in AM, and trend -Hemoccult stool HTN, chronic, currently stable -Awaiting medication reconciliation, will order home medications when complete -Will order PRNs if needed DVT prophylaxis: SCDs hypocalcemia: 6.9. give calcium gluconate IV x 1 and replace w tums BID. Flor Rai MD Jan 04, 2017 14:00
--- NOTE | 2017-01-04 14:01 | PD.CONS ---
Consult Service Palliative Care . Consult Requested By KARIN Harris Dr. . Primary Care Physician Unknown . Reason for Consultation a. To assist with evaluation and management of symptoms including: pain; dyspnea; constipation/diarrhea; lower extermity swelling. b. To assist medical decision maker(s) with: better understanding of current medical conditions; weighing benefits/burdens of medical treatment options; making medical treatment decisions. . HPI History of Present Illness Mr. Schwarz is a 71-year-old male with a history of acid or cancer status post gastrectomy her partial gastrectomy in February 2016; hypertension; benign prostatic hypertrophy; CHF; and COPD; who presented to [facility] Emergency Department on 01/03/17 complaining of severe right sided abdominal pain; shortness of breath; and a 2 month history of swelling of his lower extremities. He also complained that he was able to feel "lumps" in his abdominal area that had not been there just a couple of weeks ago. He denied nausea, vomiting, fevers, chills, chest pain, or calf pain He did report red stools in the toilet bowl. He did report having some loose stools but those have become somewhat chronic for him. It should be noted that the patient is a poor historian and different clinicians have been given different histories since he presented in the emergency department. The patient's sister is at bedside at time of my visit. She reports that the patient underwent a partial gastrectomy in Feb 2016 at [facility]. About 75% of his stomach was removed at the time. He was seen by clinical oncology. Chemotherapy was recommended but the patient refused. He has not had oncology follow up since the surgery. He gets his primary care through [facility] and has visited the PCP office, but family tells me it has been a different physician each time. He saw the [facility] physician on 01/03/17 and it was that physician who told them to come to the ED. Sister tells me that the patient was doing reasonably well until 3-4 weeks ago. He was living independently, doing his own grocery shopping, and riding around on his bicycle. Primarily because of increasing SOB, he has become mostly homebound over the last 3 weeks. Sister says that the patient alternates between constipation and diarrhea since his surgery. Because of his gastrectomy , he is supposed to eat small amounts at a time and eat soft foods. When he doesn't he gets cramps like the ones he is having now. Weight has gone from his usual 145-150 down to 121 since his diagnosis of cancer. Initial vital signs in the emergency department were as follows > temperature 98.6; pulse 87; respiratory rate 18; blood pressure 114/65; pulse oximetry 98% on room air Physical exam by the emergency repair department manager noted the following > patient was well-developed and well-nourished in no acute distress. No other bleeding was reported. Abdominal exam found the patient slightly distended with hardness palpated in the right lateral abdominal wall. There was no tenderness to palpation . Cardiovascular exam, respiratory exam, and other system exams were unremarkable. Initial diagnostic testing showed the following: * CBC showed WBC 7.5; hemoglobin 9.3; platelet count 226 * Chemistry profile showed sodium 139; potassium 4.3; chloride 108; CO2 13.9; anion gap 17; BUN 33; creatinine 2.53; GFR 31; glucose 73; calcium 6.2 * Liver function studies show total bilirubin 1.0; AST 601; ALT 101; alkaline phosphatase 508; total protein 7.2; albumin 2.1 * Lipase was 206 * Urinalysis was remarkable for some small occult blood, elevated urobilinogen. * CXR revealed basilar atelectasis and elevation of the right danielito-diaphragm. The patient received 2 doses of hydromorphone in the emergency department. He was admitted to the hospitalist service. Medical oncology was consulted. The patient has been given IV fluids with supplemental calcium and carbonate. Lower extremity ultrasound was performed to evaluate the lower extremity edema. No evidence of DVT was noted. Since admission the CBC has been stable. CO2 is increased to 17.5. Anion gap remains elevated at 16. BUN and creatinine are essentially unchanged. AST has increased to 936. ALT has increased to 153. Alkaline phosphatase remains unchanged. At time of my visit the patient is having severe abdominal pain. He said he was given something to help move his bowels and he is now cramping and passing very loose stool. . Function/Cognitive Trajectory Sister tells me that the patient was doing reasonably well until 3-4 weeks ago. He was living independently, doing his own grocery shopping, and riding around on his bicycle. Primarily because of increasing SOB, he has become mostly homebound over the last 3 weeks. Sister says that the patient alternates between constipation and diarrhea since his surgery. Because of his gastrectomy , he is supposed to eat small amounts at a time and eat soft foods. When he doesn't he gets cramps like the ones he is having now. Weight has gone from his usual 145-150 down to 121 since his diagnosis of cancer. . . Review of Systems ROS Limitations: Clinical Condition (Patient is in pain and does not want to go over ROS. ROS taken from medical record and from history provided by sister. ) Constitutional: COMPLAINS OF: Weight loss (Weight has gone from 145 to 121 since diagnosis of cancer. ), Change in appetite, Pain, Generalized weakness Eyes: COMPLAINS OF: Vision loss (Wears glasses) Ears, nose, mouth, throat: DENIES: Hearing loss Respiratory: COMPLAINS OF: Shortness of breath, DENIES: Cough Cardiovascular: COMPLAINS OF: Dyspnea on Exertion, Lower Extremity Edema, DENIES: Orthopnea Gastrointestinal: COMPLAINS OF: Abdominal pain, Black stools, Bloody stools, Constipation, Diarrhea, Bloating, DENIES: Nausea, Vomiting Genitourinary: COMPLAINS OF: Dribbling, Decreased stream, DENIES: Hematuria, Dysuria Musculoskeletal: COMPLAINS OF: Back pain, DENIES: Neck pain Neurologic: DENIES: Headache Past Family Social History Coded Allergies: No Known Allergies (Unverified , 12/16/16) Past Medical History gastric cancer s/p gastrectomy Feb 2016 htn bph copd . Past Surgical History Gastrectomy Feb 2016 Back surgery -- has Rods in back Reported Medications Pre-hospital medications included the following: Medrol Dosepak (Methylprednisolone) 4 Mg Dspk 4 Mg PO A Zithromax Z-Ilya (Azithromycin) 250 Mg Dspk 250 Mg PO DIRECTED Proventil Hfa 6.7 GM Inh (Albuterol Sulfate) 90 Mcg/Act Aer 1 Puff INH Q4H PRN Multi-Vitamin Daily (Multiple Vitamin) 1 Tab Tab 1 Tab PO DAILY Losartan-Hydrochlorothiazide 50-12.5 Mg Tab 1 Tab PO DAILY Tamsulosin (Tamsulosin HCl) 0.4 Mg Cap 0.4 Mg PO HS . Current Medications Medications (Trade) Dose Ordered Sig/Musa Route Start Time Stop Time Status Last Admin (NS Flush) 2 ml UNSCH PRN IV FLUSH 01/03/17 19:45 (NS Flush) 2 ml BID IV FLUSH 01/03/17 21:00 7/18/17 08:57 (Zofran Inj) 4 mg Q6H PRN IVP 01/03/17 19:45 Naloxone HCl 0.4 mg 0.4 mg UNSCH PRN IV 01/03/17 19:45 (Sodium Bicarbonate 8.4% Inj/D5W 1000 ml Inj) 1,100 ml @ 42 mls/hr Q24H IV 01/03/17 21:45 01/03/17 22:30 (Oscal) 1,000 mg Q12HR PO 01/04/17 09:00 01/04/17 08:57 . Family History Cancer runs in his family, but is unsure what kind. Substance Use Tobacco: Patient was a one pack per day smoker until his gastrectomy in February 2016. He has been smoking about 2-3 cigarettes per week since that time Alcohol: Drinks 1-4 drinks per day. Prescription med abuse: No known abuse Illicits: No known illicit drug use. . Psychosocial History * Originally from [place] * GED education * for 20+ years, still legally * Parents . 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 Spiritual/Cultural Factors * Sabianist jean-pierre- declines returns clerk visits . Living Will: Never completed Health Care Surrogate: Copy in medical record Durable Power of Machine Puller: Never completed Date completed: Health Care surrogate designation completed 01/04/17. . Health Care Surrogate(s): Patient designated his sister, Sherly Zee as primary health care surrogate and son, Timmy Schwarz JR as alternate. * Sherly Zee- [phone] * Timmy EDGAR- [phone] . Documented care wishes: No written documentation of health care preferences/goals . Today's verbally stated goals: Patient is in pain at time of my visit. He wants to know more about his cancer before discussion goals. . Family/friends goals: Sister tells me that she spoke with the patient earlier today. though he had declined chemotherapy when first offered at time of diagnosis, he would be willing to consider chemo now if the doctors thought it would help. He has stated he would not want radiation. . Ethical and Legal Issues Patient is capacitated to make his own health care decisions. Recommend joint decision making to include his sister -- Sherly Zee --the health care surrogate. . Physical Exam Vital Signs Date Time Temp Pulse Resp B/P Pulse Ox O2 Delivery O2 Flow Rate FiO2 01/04/17 12:00 97.5 93 18 126/75 99 01/04/17 08:32 98.0 88 18 119/72 98 01/04/17 04:00 97.6 70 18 118/75 99 01/04/17 00:44 Room Air 01/04/17 00:41 97.1 71 18 160/87 96 01/04/17 00:30 69 01/03/17 20:28 63 16 131/74 100 Room Air 01/03/17 19:48 16 01/03/17 19:47 70 16 127/70 100 Room Air 01/03/17 15:26 18 98 Room Air 01/03/17 15:08 87 18 114/65 99 Room Air 01/03/17 14:58 18 01/03/17 14:20 98.6 89 17 135/78 99 . 01/03/17 01/04/17 19:00 07:00 Intake Total 479 ml Balance 479 ml Intake IV Total 479 ml # Voids 0 # Bowel Movements 1 . Exam CONSTITUTIONAL/GENERAL: This is a thin cacechtic appearing male who is experiencing intermittent, cramping abdominal pain at time of my visit. TUBES/LINES/DRAINS: Peripheral IV SKIN: No jaundice, rashes, or lesions. Ecchymoses on upper extremities. No wounds seen anteriorly. Skin temperature appropriate. Not diaphoretic. HEAD: Atraumatic. Normocephalic. EYES: Pupils equal and round and reactive. Extraocular motions intact. No scleral icterus. No injection or drainage. Fundi not examined. ENT: Hearing grossly normal. Nose without bleeding or purulent drainage. Throat without visible erythema, exudates, masses, or lesions. NECK: Trachea midline. Supple, nontender. No palpable thyroid enlargement or nodularity. CARDIOVASCULAR: Regular rate and rhythm without murmurs, gallops, or rubs. No JVD. Peripheral pulses symmetric. RESPIRATORY/CHEST: Symmetric, unlabored respirations. Clear to auscultation. Breath sounds equal bilaterally-- decreased air movement at bases. No wheezes, rales, or rhonchi. GASTROINTESTINAL: Abdomen is firm with generalized tenderness and some guarding. Patient is passing stool at time of my visit without relief. Unable to palpate isolated masses or organomegaly . BS present. GENITOURINARY: Without palpable bladder distension. MUSCULOSKELETAL: Extremities without clubbing, cyanosis, or edema. No joint tenderness or effusion noted. No calf tenderness. No mottling or clubbing. LYMPHATICS: No palpable cervical or supraclavicular adenopathy. NEUROLOGICAL: Awake and alert. Motor and sensory grossly within normal limits. Follows commands. Cognitively sharp. Moves all extremities. PSYCHIATRIC: Clearly uncomfortable. No obvious anxiety/depression. No apparent hallucinations or other psychotic thought process. . Diagnostic Tests Laboratory Laboratory Tests Test 01/03/17 01/03/17 01/04/17 01/04/17 15:15 16:00 01:23 05:15 White Blood Count 7.5 TH/MM3 7.9 TH/MM3 (4.0-11.0) (4.0-11.0) Red Blood Count 3.20 MIL/MM3 3.30 MIL/MM3 (4.50-5.90) (4.50-5.90) Hemoglobin 9.3 GM/DL 9.9 GM/DL (13.0-17.0) (13.0-17.0) Hematocrit 29.8 % 31.2 % (39.0-51.0) (39.0-51.0) Mean Corpuscular Volume 93.4 FL 94.6 FL (80.0-100.0) (80.0-100.0) Mean Corpuscular Hemoglobin 29.0 PG 30.0 PG (27.0-34.0) (27.0-34.0) Mean Corpuscular Hemoglobin 31.1 % 31.7 % Concent (32.0-36.0) (32.0-36.0) Red Cell Distribution Width 18.2 % 18.5 % (11.6-17.2) (11.6-17.2) Platelet Count 226 TH/MM3 219 TH/MM3 (150-450) (150-450) Mean Platelet Volume 8.2 FL 7.6 FL (7.0-11.0) (7.0-11.0) Neutrophils (%) (Auto) 70.2 % 77.3 % (16.0-70.0) (16.0-70.0) Lymphocytes (%) (Auto) 11.6 % 10.1 % (9.0-44.0) (9.0-44.0) Monocytes (%) (Auto) 16.4 % 12.1 % (0.0-8.0) (0.0-8.0) Eosinophils (%) (Auto) 0.3 % (0.0-4.0) 0.0 % (0.0-4.0) Basophils (%) (Auto) 1.5 % (0.0-2.0) 0.5 % (0.0-2.0) Neutrophils # (Auto) 5.3 TH/MM3 6.1 TH/MM3 (1.8-7.7) (1.8-7.7) Lymphocytes # (Auto) 0.9 TH/MM3 0.8 TH/MM3 (1.0-4.8) (1.0-4.8) Monocytes # (Auto) 1.2 TH/MM3 1.0 TH/MM3 (0-0.9) (0-0.9) Eosinophils # (Auto) 0.0 TH/MM3 0.0 TH/MM3 (0-0.4) (0-0.4) Basophils # (Auto) 0.1 TH/MM3 0.0 TH/MM3 (0-0.2) (0-0.2) CBC Comment DIFF FINAL AUTO DIFF Differential Comment AUTO DIFF CONFIRMED Sodium Level 139 MEQ/L 138 MEQ/L 139 MEQ/L (136-145) (136-145) (136-145) Potassium Level 4.3 MEQ/L 5.8 MEQ/L 5.1 MEQ/L (3.5-5.1) (3.5-5.1) (3.5-5.1) Chloride Level 108 MEQ/L 107 MEQ/L 107 MEQ/L (98-107) (98-107) (98-107) Carbon Dioxide Level 13.9 MEQ/L 11.9 MEQ/L 12.6 MEQ/L (21.0-32.0) (21.0-32.0) (21.0-32.0) Anion Gap 17 MEQ/L (5-15) 19 MEQ/L (5-15) 19 MEQ/L (5-15) Blood Urea Nitrogen 33 MG/DL (7-18) 36 MG/DL (7-18) 36 MG/DL (7-18) Creatinine 2.53 MG/DL 2.54 MG/DL 2.71 MG/DL (0.60-1.30) (0.60-1.30) (0.60-1.30) Estimat Glomerular Filtration 31 ML/MIN (>89) 31 ML/MIN (>89) 28 ML/MIN (>89) Rate Random Glucose 73 MG/DL 71 MG/DL 85 MG/DL (74-106) (74-106) (74-106) Calcium Level 6.2 MG/DL 6.9 MG/DL 7.5 MG/DL (8.5-10.1) (8.5-10.1) (8.5-10.1) Protein Corrected Calcium 6.2 MG/DL 7.0 MG/DL (8.5-10.1) (8.5-10.1) Total Bilirubin 1.0 MG/DL 1.1 MG/DL (0.2-1.0) (0.2-1.0) Aspartate Amino Transf 601 U/L (15-37) 936 U/L (15-37) (AST/SGOT) Alanine Aminotransferase 101 U/L (12-78) 153 U/L (12-78) (ALT/SGPT) Alkaline Phosphatase 508 U/L 494 U/L (45-117) (45-117) Total Protein 7.2 GM/DL 7.0 GM/DL 7.3 GM/DL (6.4-8.2) (6.4-8.2) (6.4-8.2) Albumin 2.1 GM/DL 2.1 GM/DL (3.4-5.0) (3.4-5.0) Lipase 206 U/L (73-393) Urine Color YELLOW (YELLW/STRAW) Urine Turbidity HAZY (CLEAR) Urine pH 5.5 (5.0-8.5) Urine Specific Victoria 1.023 (1.002-1.035) Urine Protein 30 mg/dL (NEG-TRACE) Urine Glucose (UA) NEG mg/dL (NEG) Urine Ketones NEG mg/dL (NEG) Urine Occult Blood SMALL (NEG) Urine Nitrite NEG (NEG) Urine Bilirubin NEG (NEG) Urine Urobilinogen 4.0 MG/DL (LESS THAN 2.0) Urine Leukocyte Esterase NEG (NEG) Urine RBC 2 /hpf (0-3) Urine WBC 4 /hpf (0-5) Urine Squamous Epithelial 1 /hpf (0-5) Cells Urine Amorphous Sediment RARE Urine Bacteria OCC /hpf (NONE) Urine Hyaline Casts 17 /lpf (RARE) Urine Mucus FEW /lpf (OCC) Microscopic Urinalysis Comment CULT NOT INDICATED Platelet Estimate NORMAL (NORMAL) Platelet Morphology Comment NORMAL (NORMAL) Target Cells 1+ (NORMAL) Ovalocytes 1+ (NORMAL) Keratocytes OCC (NORMAL) Test 01/04/17 11:10 Sodium Level 138 MEQ/L (136-145) Potassium Level 4.3 MEQ/L (3.5-5.1) Chloride Level 105 MEQ/L (98-107) Carbon Dioxide Level 17.5 MEQ/L (21.0-32.0) Anion Gap 16 MEQ/L (5-15) Blood Urea Nitrogen 36 MG/DL (7-18) Creatinine 2.53 MG/DL (0.60-1.30) Estimat Glomerular Filtration 31 ML/MIN (>89) Rate Random Glucose 58 MG/DL (74-106) Calcium Level 8.4 MG/DL (8.5-10.1) . Result Diagram: 01/04/17 0515 01/04/17 1110 Microbiology No micro testing . Imaging Last Impressions Abdomen/Pelvis CT 01/03/17 1733 Signed Impressions: Service Date/Time: Tuesday, January 03, 2017 18:21 - CONCLUSION: 1. Hepatomegaly and ill-defined hepatic masses are suspected diffusely and concerning for metastatic disease. This is incompletely evaluated without contrast. 2. Postsurgical changes to the stomach with reflux of contrast into the esophagus. 3. Right basilar atelectasis versus airspace disease. 4. Ascites. 5. Mild dilatation of the pancreatic duct identified. Fredy Horn MD Lower Extremity Ultrasound 01/03/17 0000 Signed Impressions: Service Date/Time: Tuesday, January 03, 2017 21:52 - CONCLUSION: Normal examination. Fredy Horn MD Chest X-Ray 01/03/17 0000 Signed Impressions: Service Date/Time: Eben, January 03, 2017 21:15 - CONCLUSION: Basilar atelectasis and elevation of the right hemidiaphragm. Fredy Horn MD . Patient/Family Conference Present at Family Conference: Sherly Zee (sister and health care surrogate) Sister -in-law. . Family Conference Time (mins): 35 Family Conference Location: Bedside Issues Discussed: * Palliative care role, purpose, approach * Additional medical, psychosocial, and spiritual history * Patients general health, functional status, and cognitive changes in the months leading up to the current hospitalization * Family understanding of the current medical problems * Family understanding of prognosis * Patients goals of medical treatment. * Current medical treatment options and benefits/burdens of those options * Questions answered to the best of my ability * Palliative care contact information provided Discussed how imaging was highly suggestive of metastatic cancer. Without a biopsy we would not know for sure if it were the stomach cancer or some other type of cancer. We would need to know what type of cancer it is in order to know what treatments might be effective. Explained that cancer specialist would visit and likely discuss options and see if patient agrees to biopsy. If patient decides that he is not interested in chemotherapy or treatment, than it does not make a lot of sense to even get a biopsy. . Assessment and Plan Disease Oriented Problem List: (1) Gastric adenocarcinoma (2) Liver masses Comment: Probable metastatic disease. . (3) Low bicarbonate level (4) Hypocalcemia (5) Anemia Symptom Scale: (1) Abdominal pain 0-10 Scale: 10 (2) Dyspnea 0-10 Scale: Unable to quantify Comment: Cause of dyspnea is uncertain. . Pertinent Non-Medical Issues Psychosocial: Local sister Sherly Zee is primary source of psychosocial support. Spiritual: Sabianist -- declines behavioral medical director visit. Legal: Health care surrogate is in place. Ethical issues impacting care: recommend major decision making be done in conjunction with sister -- Sherly zee. . Important Contacts * Gunjan Zee (sister) [phone] . Prognosis Patient is 71 yrs old and appears to have metastatic disease to the liver. Unclear if the liver mets are secondary to the patient's original gastric cancer or if this is from a new primary. Await oncology evaluation, but most likely patient has non-curable disease. . Code Status: Full Code Plan == Code Status: Full Code for now. Will revisit after the conversation take place with oncology. == Decision maker: Patient is capacitated to make his own decisions but will do better with the assistance of his health care surrogate - Sherly galvin. == Goals of treatment: Patient wants to know opinion of business intelligence consultant and options before committing to either ongoing aggressive care or comfort measures. == Pain : Pain is mostly crampy and abdominal. Does not appear to be relieved by moving bowels. New orders for Percocet and IV hydromorphone have been placed--await to see their effect. Sister reports patient needs to eat small amounts and soft foods otherwise he gets bad cramping. No further orders at this time. == Dyspnea: Cause of dyspnea is uncertain. May be from combination of abdominal distension; anemia; COPD. Oxygenating well currently on RA. No further recommendations at this time. == Anorexia: Appetite is down. There has been weight loss. Probably due to the cancer. Could try mirtazapine at night for sleep, depression, and appetite. == Constipation/diarrhea: Pt reportedly has been having alternating constipation / diarrhea since his partial gastrectomy in 2016. May be helped by a consistent soft diet and small frequent feeds. Opiates for pain will likely slow bowels down. No further recommendations at this time. == Pallaitive care will continue to follow to assist with symptom management and to further address goals of medical treatment as the clinical course evolves. . Thank you for the opportunity to participate in the care of Mr. Schwarz. . Attestation To help prompt me to consider important information that might be impacting today's encounter and assessment, information from prior notes written by myself or my colleagues may have been "brought forward" into today's note. My signature on this note, however, is an attestation that I personally performed the exam, history, and/or decision-making noted today, and, unless otherwise indicated, the interactions with patient, family, and staff as well as the review of records all occurred today. I also attest that the listed assessment and stated plan reflect my best clinical judgment today based on the combination of historical information, prior notes, and today's exam/ interactions. When time spent is documented, it refers only to time spent today by the signer, or if indicated, combined time spent today by collaborating physician/nurse practitioner. . Clayton Fox MD Jan 04, 2017 14:01
[2017-01-04] MEDS ORDERED: DOCUSATE SODIUM 50 MG/SENNA 8.6 MG TAB PO PRN (14:15)
[2017-01-04] MEDS ORDERED: oxyCODONE/ACETAMINOPHEN 5 MG/325 MG TAB PO PRN (14:15)
[2017-01-04] MEDS ORDERED: MAGNESIUM HYDROXIDE SUSP 30 ML CUP PO PRN (14:15)
[2017-01-04] MEDS ORDERED: ALBUTEROL SULFATE 90 MCG/ACT HFA 18 GM INHALER INH PRN ×2 (15:00)
[2017-01-04] MEDS: oxyCODONE/ACETAMINOPHEN 10 MG/325 MG TAB PO PRN ×3 (15:07→23:39)
[2017-01-04 15:24] LABS: BICARBONATE 15.3 MEQ/L (21.0-32.0); POTASSIUM 4.2 MEQ/L (3.5-5.1)
[2017-01-04 15:52] LABS: CALCIUM-PROTEIN CORRECTED 6.9 MG/DL (8.5-10.1)
--- NOTE | 2017-01-04 19:06 | EKG ---
Date Performed: 01/03/2017 Time Performed: 15:00:51 PTAGE: 71 years EKG: PROBABLY NORMAL Sinus rhythm LOW QRS VOLTAGE IN EXTREMITY LEADS LEFT ANTERIOR FASCICULAR BLOCK ABNORMAL ECG PREVIOUS TRACING : 12/16/2016 01.55 Compared to prior tracing no significant change DOCTOR: Issac Meade Interpretating Date/Time 01/04/2017 19:05:46
[2017-01-04 19:21] LABS: BICARBONATE 15.7 MEQ/L (21.0-32.0); POTASSIUM 4.5 MEQ/L (3.5-5.1)
[2017-01-04] MEDS: SODIUM BICARBONATE 8.4% INJ 100 MEQ in DEXTROSE 5% IN WATE 1000ML INJ 1,000 ML IV SCH ×2 (20:14)
--- NOTE | 2017-01-04 20:43 | MB ---
cc: MD JEFFERY,MEAGAN PINEDA M.D. DATE OF CONSULTATION 01/04/17 DATE OF [address] Carine Herndon CHIEF COMPLAINT Dr. Herndon requests a consultation for Mr. Schwarz regarding suspected metastatic gastric cancer. HISTORY OF PRESENT ILLNESS Mr. Schwarz is a 71-year-old man with history of hypertension, benign prostatic hypertrophy, COPD. 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 He underwent definitive surgery. The final pathology report was not available during the consultation. He had his surgery under the care Dr. Fontana at [facility]. He declined adjuvant therapy. He did well for several months until he became increasingly short of breath. He reports being on oxygen at home. He has decreased smoking to one or two cigarettes a week. Unfortunately, he does still smoke. He has had progressive weight loss. He was brought into the emergency department complaining of severe abdominal distension and shortness of breath. He also had lower extremity swelling. Review of the electronic medical record shows evaluation on 12/16/2016. A CT angiogram was negative for pulmonary embolism. Review of the images shows hepatomegaly with elevation of the right hemidiaphragm. No liver lesion was identified on the report, but in retrospect view there may be a lesion in the right lobe of the liver and a smaller one in the left that could be delineated in the liver views that were available. He came in with a hemoglobin of 9.9, MCV 94.6. He has acute renal insufficiency with a BUN of 33, creatinine 2.53. His calcium was low. Liver function - AST of 601, ALT 101, alkaline phosphatase 508, bilirubin is 1.0. Main complaint is related to being short of breath not even able to walk towards the door. Apparently, he has been having some diarrhea after his gastrectomy. There were complaints of red stool in the toilet. His sister was not available during the consultation to supplement the history. PAST MEDICAL HISTORY 1. Gastric cancer, 2. Anemia, 3. Acute renal insufficiency, 4. Hypertension 5. Benign prostatic hypertrophy, 6. COPD, 7. Unintentional weight loss 8. Hypocalcemia. PAST SURGICAL HISTORY 1. Gastrectomy 2. Back surgery. FAMILY HISTORY Mother and father of old age. Sister who is healthcare surrogate has had two cancers and is a survivor. SOCIAL HISTORY Lives alone. Denies alcohol or illicit drug use. He smokes one to two cigarettes per week. ALLERGIES NO KNOWN DRUG ALLERGIES. MEDICATIONS Current, 1. Cozaar. 2. Microzide. 3. Flomax. 4. Percocet. 5. Calcium carbonate. 6. Sodium bicarbonate. PHYSICAL EXAMINATION VITAL SIGNS: Temperature 97.6, heart rate 103, respiratory rate 18, blood pressure 114/70, saturation 99%. GENERAL: Mr. Schwarz is a well-developed cachectic-appearing man lying in bed. He was short of breath talking and oxygen via nasal cannula helped. HEENT: Pupils are round, reactive to light and accommodation. Sclerae nonicteric. Oropharynx is dry. NECK: Supple. LUNGS: Clear anteriorly. CARDIOVASCULAR: Tachycardia. ABDOMEN: Large hepatomegaly appreciated extending down almost to the pelvis and tenderness in the right upper quadrant from the hepatomegaly. No splenomegaly. EXTREMITIES: Lower extremity with no edema. NEUROLOGIC: Exam is nonfocal. LABORATORY DATA As described above. IMAGING STUDIES Described above. ASSESSMENT/PLAN Mr. Schwarz is a 71-year-old man with multiple medical problems. He is diagnosed with a gastric cancer in November of 2015. He had definitive surgery in February of 2016. He apparently had definitive resection. Pathology report and operative notes have been requested. We discussed the concern for recurrence of metastatic disease in the liver. The hepatomegaly has occurred over the last several weeks. I suspect this is metastatic disease from his primary gastric cancer. We discussed the risk and benefit of biopsy to establish a diagnosis. Mr. Schwarz is agreeable to this. Mr. Schwarz reports he would be agreeable if chemotherapy would prolong his life. We discussed that life prolongation is unknown. However, the treatment is effective in alleviating some symptoms particularly if he responds. We discussed the biopsy is necessary to determine if he has metastatic recurrent gastric cancer. He will need a formal staging evaluation. We can initiate palliative therapy pending pathologic confirmation of recurrent disease. We discussed his poor performance status. He admits having difficulty walking even to the door. In part, this is related to his shortness of breath from the hepatomegaly. There is no pulmonary embolism. No signs of lower extremity deep vein thromboses. He is certainly at increased risk. DVT prophylaxis will be encouraged after his CT guided biopsy. We will refer him to radiology for attempted CT-guided biopsy. Hope that the CT angiogram from November may be helpful in targeting a lesion to biopsy in the left lobe of the liver. Mr. Schwarz's questions were answered to his satisfaction. Further recommendations pending the definitive pathology. His case was discussed with palliative care, Dr. Fox. Ferritin and B12 will be checked. We discussed potential attritional deficiency given his gastrectomy. Meagan Angeles MD RAD/ /8:06 PM /8:24 PM
[2017-01-04] MEDS ORDERED: TAMSULOSIN HCL 0.4 MG CAP PO SCH (21:00)
[2017-01-04] MEDS ORDERED: CALCIUM CARBONATE 500 MG CHEWABLE TAB CHEW SCH (21:00)
[2017-01-04 22:05] LABS: ANION GAP 17 MEQ/L (5-15); BICARBONATE 17.2 MEQ/L (21.0-32.0); BLOOD UREA NITROGEN 43 MG/DL (7-18); CHLORIDE 106 MEQ/L (98-107); GLOMERULAR FILTRATION RATE 26 ML/MIN (>89); SODIUM (NA) 140 MEQ/L (136-145)
[2017-01-04 22:32] LABS: FERRITIN 1758 NG/ML (26-388)
[2017-01-05] VITALS (15 sets, daily range): BP systolic 85–100; BP diastolic 48–63; PULSE 72–200; RESP 11–27; TEMP 93.6–99.5; O2SAT 88–99
[2017-01-05] MEDS: oxyCODONE/ACETAMINOPHEN 10 MG/325 MG TAB PO PRN (03:47)
[2017-01-05] MEDS: HYDROmorphone HCL PF 1 MG/ML VIAL IV PUSH PRN (05:40)
[2017-01-05] MEDS ORDERED: SODIUM CHLORID 0.9% 500 ML INJ 500 ML IV ONE (07:30)
[2017-01-05] MEDS ORDERED: SODIUM CHLOR 0.9% 1000 ML INJ 1,000 ML IV ONE (08:15)
[2017-01-05] MEDS: SODIUM CHLORIDE 0.9% FLUSH 10 ML FLUSH IV FLUSH SCH ×2 (08:20→21:00)
[2017-01-05] MEDS: CALCIUM CARBONATE 1.25 GM (CA 500 MG) TAB PO SCH ×2 (08:20→21:00)
--- NOTE | 2017-01-05 08:28 | HHI.PR ---
Subjective Remarks I was paged by RN because SBP in the 60's and difficult to obtain BP and pt's O2 sats are also very low. Currently on 6L non rebreather and sats low 90's. Pt is very somnolent, does briefly open his eyes, at this time denied pain and doesn't complain of anything, however he does look very ill. Objective Vitals Vital Signs Date Time Temp Pulse Resp B/P Pulse Ox O2 Delivery O2 Flow Rate FiO2 01/05/17 06:05 99 20 94/58 90 94/58 01/05/17 04:00 97.5 120 24 97/58 88 01/05/17 03:41 21 01/05/17 00:49 18 01/05/17 00:00 Room Air 01/05/17 00:00 97.4 108 17 93/63 96 01/04/17 20:10 Room Air 01/04/17 20:00 99.0 64 18 131/70 93 01/04/17 20:00 103 01/04/17 16:10 97.6 103 18 114/70 99 01/04/17 16:00 Room Air 01/04/17 12:00 97.5 93 18 126/75 99 01/04/17 12:00 Room Air 01/04/17 08:32 98.0 88 18 119/72 98 I/O 01/04/17 01/04/17 01/04/17 01/05/17 01/05/17 01/05/17 07:00 15:00 23:00 07:00 15:00 23:00 Intake Total 479 ml 1032 ml 706 ml Output Total 300 ml 580 ml Balance 479 ml 1032 ml -300 ml 126 ml Intake Oral 600 ml 240 ml IV Total 479 ml 432 ml 466 ml Output Urine Total 300 ml 580 ml # Voids 0 3 # Bowel Movements 1 5 0 0 Result Diagram: 01/04/17 0515 01/04/172121 Imaging Last Impressions Abdomen/Pelvis CT 01/03/173 Signed Impressions: Service Date/Time: Tuesday, January 03, 2017 18:21 - CONCLUSION: 1. Hepatomegaly and ill-defined hepatic masses are suspected diffusely and concerning for metastatic disease. This is incompletely evaluated without contrast. 2. Postsurgical changes to the stomach with reflux of contrast into the esophagus. 3. Right basilar atelectasis versus airspace disease. 4. Ascites. 5. Mild dilatation of the pancreatic duct identified. Fredy Horn MD Lower Extremity Ultrasound 01/03/17 0000 Signed Impressions: Service Date/Time: Tuesday, January 03, 2017 21:52 - CONCLUSION: Normal examination. Fredy Horn MD Chest X-Ray 01/03/17 0000 Signed Impressions: Service Date/Time: Tuesday, January 03, 2017 21:15 - CONCLUSION: Basilar atelectasis and elevation of the right hemidiaphragm. Fredy Horn MD Objective Remarks GENERAL: thin, malnourished AA male, ill appearing, somnolent SKIN: Cool and dry. HEAD: Atraumatic. Normocephalic. EYES: briefly opens eyes then shuts them back up ENT: Nose without drainage. Airway patent. NECK: Trachea midline. CARDIOVASCULAR: RRR w no obvious murmurs but sounds are very distant RESPIRATORY: appear clear to auscultation GASTROINTESTINAL: Abdomen tense w palpable mass ? liver. no guarding or rebound , do not auscultate bowel sounds. MUSCULOSKELETAL:moving extremities NEUROLOGICAL: somnolent, briefly opens eyes, able to tell me "nothing hurts". A/P Problem List: (1) Metastatic adenocarcinoma ICD Code: C79.9 Status: Acute (2) Abdominal pain ICD Code: R10.9 Status: Acute (3) Hypocalcemia ICD Code: E83.51 Status: Acute (4) Lower extremity edema ICD Code: R60.0 Status: Acute (5) Dyspnea ICD Code: R06.00 Status: Acute (6) Low bicarbonate level ICD Code: E87.8 Status: Acute Assessment and Plan 71 y/o male with a history of gastric cancer, htn, bph, and copd presented to the ED with complaints of sob all the time, and swelling in his legs for the last 2 months. Abdominal pain with transaminitis, possible metastatic adenocarcinoma, patient with a history of gastric cancer AST 601, ALT [address] shows Hepatomegaly and ill-defined hepatic masses are suspected diffusely and concerning for metastatic disease. -Medical oncologist following and will further evaluate/stage pt's cancer. -pain control w percocets and IV dilaudid prn. Palliative care team following and pt as of now is full code. appreciate assistance respiratory failure/ Dyspnea -Chest x ray on admission showed atelectasis and elevation of the right hemidiaphragm. Currently requiring 6L non rebreather. Repeat STAT chest x-ray -continue supplemental O2 - STAT ABG ordered. Hypotension: - Nursing staff having difficulty finding BP's, last one they were able to obtain a systolic in the 60's. Currently getting a 1L bolus, will order another one. I did discuss the case w Dr. Gonzales, gray mixing operator who has accepted the patient, transfer order in place. will order STAT x-ray of Abdomen to r/o air under diaphragm as pt was having lots of pain yesterday.consult to gray mixing operator in place. holld all BP meds. Hypocalcemia/ low bicarb, calcium 6.2, bicarb 13.9 -s/p 2 grams calcium gluconate -IVF with D5 and bicarb -BMP in AM ordered and not yet available. - calcium carbonate po; aggressive iv replacements Lower extremity edema, +1 pedal edema noted -Bilateral DVT US neg -Elevated while in bed, most likely from hypoalbunemia as pt is malnourishedl Hematochezia, patient states red stools and blood in toilet bowl Hgb 9.3 -Trend hb -Hemoccult stool HTN, chronic, currently hypotensive, hold all BP meds. Getting NS boluses DVT prophylaxis: SCDs. Will need DVT proph after liver biopsy hypocalcemia: 6.9 yesterday. s/p calcium gluconate IV x 1 and replace w tums BID. Discharge Planning transfer care to gray mixing operator service. Flor Rai MD Jan 05, 2017 08:28
[2017-01-05] MEDS ORDERED: LOSARTAN 50 MG TAB PO SCH (09:00)
[2017-01-05] MEDS ORDERED: HYDROCHLOROTHIAZIDE 12.5 MG CAP PO SCH (09:00)
[2017-01-05 09:03] LABS: BLOOD GAS BASE EXCESS -18.6 mmol/L (-2-2); BLOOD GAS CARBOXYHEMOGLOBIN 1.1 % (0-4); BLOOD GAS HCO3 8 mmol/L (22-26); BLOOD GAS METHEMOGLOBIN 1.2 % (0-2); BLOOD GAS O2 HGB SATURATION 97 % (90-100); BLOOD GAS PCO2 23 mmHg (38-42); BLOOD GAS PO2 198 mmHg (61-120); BLOOD GAS TOTAL HGB 6.2 G/DL (12.0-16.0); CRITICAL VALUE YES; DRAW SITE RT RADIAL; LITER FLOW 6 L/M; NUMBER OF ARTERIAL PUNCTURES 2; OXYGEN DEVICE SIMPLE MASK; STAT YES; TEMP CORR TO 98.6; ULNAR PULSE NOT PRESENT
[2017-01-05 09:10] LABS: APTT (PATIENT) 40.8 SEC (24.3-30.1); INTERNATIONAL NORMALIZED RATIO 1.9 RATIO; PROTHROMBIN TIME - PATIENT 21.3 SEC (9.8-11.6)
[2017-01-05] MEDS ORDERED: ACETAMINOPHEN 325 MG TAB PO PRN (09:15)
[2017-01-05] MEDS ORDERED: CHLORHEXIDINE GLUCONATE 2 % 1 PACK (2 CLOTHS) TOP PRN (09:15)
[2017-01-05] MEDS ORDERED: MIDAZOLAM HCL 2 MG/2 ML VIAL IV PRN (09:15)
[2017-01-05] MEDS ORDERED: MORPHINE SULFATE 4 MG/ML INJ IV PRN (09:15)
[2017-01-05] MEDS ORDERED: MISCELLANEOUS NURSING INFORMATION XX SCH (09:15)
--- NOTE | 2017-01-05 09:23 | RADRPT ---
EXAM DATE/TIME: 01/05/2017 08:48 [facility] COMPARISON: CT PULMONARY ANGIOGRAM, December 16, 2016, 4:46. CHEST SINGLE AP, January 03, 2017, 21:15. INDICATIONS : Infiltrate. MEDICAL HISTORY : Cardiovascular disease. Carcinoma, gastric. Congestive heart failure SURGICAL HISTORY : Stomach. ENCOUNTER: Subsequent ACUITY: 3 days PAIN SCORE: Non-responsive. LOCATION: Bilateral chest FINDINGS: Lucency in the left lower lung zone extending to the chest wall. A continued elevation of the right h emidiaphragm minimal airspace disease in the right lower lobe likely reflects atelectasis. Cardiomedi astinal contours are within normal limits. Healed right clavicle fracture. Bony thorax is grossly int act. CONCLUSION: 1. Lucency in the left lower lung zone laterally extending to the chest wall is likely artifactual al though a small subpulmonic pneumothorax cannot be excluded. Consider formal PA and lateral views of t he chest or slightly rotated view for better evaluation. 2. Stable elevation of the right hemidiaphragm with right basilar atelectasis. Marky Marcos MD on January 05, 2017 at 9:15 Board Certified Radiologist. This report was verified electronically.
[2017-01-05] MEDS ORDERED: MIDAZOLAM HCL 5 MG/ML VIAL (1 ML) ONE (09:25)
--- NOTE | 2017-01-05 09:27 | RADRPT ---
EXAM DATE/TIME: 01/05/2017 08:44 [facility] COMPARISON: CT ABDOMEN & PELVIS W/O CONTRAST, January 03, 2017, 18:21. INDICATIONS : Pain, R/O air under diaphragm. MEDICAL HISTORY : Cardiovascular disease. Carcinoma, gastric. Congestive heart failure SURGICAL HISTORY : Stomach. ENCOUNTER: Subsequent ACUITY: 3 days PAIN SCORE: Non-responsive. LOCATION: Bilateral Abdomen. FINDINGS: There is a paucity of bowel gas with air and stool noted in portions of the descending colon and rect um. No dilated loops of bowel are demonstrated. Small calcifications in the pelvis likely reflect phl eboliths. Postsurgical features of daniel and screw fixation are noted in the lower lumbar spine. There is redemonstration of elevation of the right hemidiaphragm. CONCLUSION: 1. Nonspecific bowel gas pattern with general paucity of bowel gas with no dilated loops. 2. Please see chest radiograph report for abnormality that may represent a left-sided pneumothorax. Marky Marcos MD on January 05, 2017 at 9:22 Board Certified Radiologist. This report was verified electronically.
--- NOTE | 2017-01-05 10:00 | PD.PROCEDR ---
Procedure Note Procedure DX: Hypovolemic Shock OP: Insertion Central Line ([id number]) Procedure: Time out performed. Left chest prepped and draped. Left subclavian vein cannulated and wire easily advanced. Catheter passed over wire to 17 cm. Lumens aspirated and flushed. Dressing applied. CXR ordered. Tarun Hwang MD Jan 05, 2017 10:00
[2017-01-05 10:20] LABS: BASOPHIL % 0.6 % (0.0-2.0); EOSINOPHIL % 0.1 % (0.0-4.0); LYMPH % 7.6 % (9.0-44.0); LYMPHOCYTE # 0.7 TH/MM3 (1.0-4.8); MEAN CELL VOLUME 99.4 FL (80.0-100.0); MEAN CORPUSCULAR HEMOGLOBIN 29.8 PG (27.0-34.0); MONO % 11.3 % (0.0-8.0); NEUT % 80.4 % (16.0-70.0); PLATELET COUNT 143 TH/MM3 (150-450); RED BLOOD COUNT 2.01 MIL/MM3 (4.50-5.90); RED CELL DISTRIBUTION WIDTH 19.1 % (11.6-17.2); WHITE BLOOD COUNT 8.7 TH/MM3 (4.0-11.0)
--- NOTE | 2017-01-05 10:26 | PD.CONS ---
[facility] Service Critical Care Medicine Consult Requested By [facility] Reason for Consult Hypovolemic Shock Primary Care Physician Unknown History of Present Illness 71-year-old man with history of hypertension, benign prostatic hypertrophy, COPD. Gastrectomy last November 2015 for poorly differentiated adenocarcinoma. He declined adjuvant therapy. He did well for several months until he became increasingly short of breath. He was brought into the emergency department complaining of severe abdominal distension and shortness of breath. He also had lower extremity swelling. Now transferred to [facility] with shock requiring aggressive iv infusions. Marked metabolic acidosis, possibly exacerbated by lower GI losses. Sister (Health Care surrogate) arrived to bedside and expressed wish for DNR status. Update: He continues to deteriorate. Sister and I have clarified goals. We will transfuse some blood and keep him comfortable. No vasopressors, dilaysis, etc. Review of Systems ROS Abdominal pain, SOB Past Family Social History Allergies: Coded Allergies: No Known Allergies (Unverified , 12/16/16) Physical Exam Vital Signs Vital Signs Date Time Temp Pulse Resp B/P Pulse Ox O2 Delivery O2 Flow Rate FiO2 01/05/17 09:10 98 Simple Mask 6.00 01/05/17 08:15 Simple Mask 6.00 01/05/17 08:15 200 01/05/17 06:05 99 20 94/58 90 94/58 01/05/17 04:00 97.5 120 24 97/58 88 01/05/17 03:41 21 01/05/17 00:49 18 01/05/17 00:00 Room Air 01/05/17 00:00 97.4 108 17 93/63 96 01/04/17 20:10 Room Air 01/04/17 20:00 99.0 64 18 131/70 93 01/04/17 20:00 103 01/04/17 16:10 97.6 103 18 114/70 99 01/04/17 16:00 Room Air 01/04/17 12:00 97.5 93 18 126/75 99 01/04/17 12:00 Room Air Physical Exam P 100, BP 62/40, R 20, sats 92% Gen: Cachectic, ill-appearing elderly man. Head: Normal. Neck: Supple, airway widely patent. Lungs: Clear, no wheezes or crackles. Heart: NL S1S2, no m,r. Neck veins flat. Abdomen: Firm and distended. Liver hard and large. No peritoneal irritation. Quiet. Extremities: Tepid, perfused. Neuro: Lethargic, mumbling. Moves 4 limbs weakly. ONUR. Laboratory Laboratory Tests Test 01/04/17 01/04/17 01/04/17 01/04/17 11:10 14:29 18:29 21:22 Sodium Level 138 142 140 140 Potassium Level 4.3 4.2 4.5 5.0 Chloride Level 105 108 106 106 Carbon Dioxide Level 17.5 15.3 15.7 17.2 Anion Gap Blood Urea Nitrogen 36 37 37 43 Creatinine 2.53 2.73 2.76 2.89 Estimat Glomerular Filtration 31 28 28 26 Rate Random Glucose 58 124 84 94 Calcium Level 8.4 6.7 8.1 8.0 Protein Corrected Calcium 6.9 Total Protein 6.8 Ferritin 1758 Vitamin B12 Level GREATER THAN 2000 Test 01/05/17 01/05/17 08:29 08:57 Prothrombin Time 21.3 Prothromb Time International 1.9 Ratio Activated Partial 40.8 Thromboplast Time Blood Gas Puncture Site RT RADIAL Blood Gas Patient Temperature 98.6 Blood Gas HCO3 8 Blood Gas Base Excess -18.6 Blood Gas Oxygen Saturation 97 Arterial Blood pH 7.18 Arterial Blood Partial 23 Pressure CO2 Arterial Blood Partial 198 Pressure O2 Arterial Blood Oxygen Content 9.0 Arterial Blood 1.1 Carboxyhemoglobin Arterial Blood Methemoglobin 1.2 Blood Gas Hemoglobin 6.2 Oxygen Delivery Device SIMPLE MASK Blood Gas Liter Flow 6 Result Diagram: 01/04/17 0515 01/04/172121 Assessment and Plan Assessment and Plan Assessment: 1. Circulatory Shock, hypovolemia. 2. Metastatic Gastric Cancer, adenocarcinoma. 3. Metabolic Acidosis. Plan: 1. Place CVL for bicarb gtt. 2. IV hydration. 3. Condom catheter. 4. Protonix. 5. Hold lovenox. 6. SCDs. 7. Claify care goals with consult team. 8. Analgesia prn. Overall impression: Hypovolemic shock probably from GI losses. Critically ill at this time and possibly bleeding from gut. Continue resuscitation while clarifying care goals. Critical care 44 mins aside from procedures. Tarun Hwang MD Jan 05, 2017 10:26
[2017-01-05 10:29] LABS: HEMO FLAGS AUTO DIFF
[2017-01-05 10:58] LABS: BICARBONATE 9.4 MEQ/L (21.0-32.0); CALCIUM-PROTEIN CORRECTED 7.8 MG/DL (8.5-10.1)
[2017-01-05 10:59] LABS: BANDS 7 % (0-6); CORRECTED NUCLEATED RBC 1 /100 WBC (0-0); MYELOCYTES 2 % (0-0); NEUTROPHIL # MANUAL DIFF 6.8 TH/MM3 (1.8-7.7); PLASMA CELLS 2 % (0-0); POLYS (SEG NEUTROPHILS) 69 % (16-70); WBC DIFF SAMPLE 100
[2017-01-05 11:00] LABS: PLATELET ESTIMATE SMEAR NORMAL (NORMAL); PLATELET MORPHOLOGY NORMAL (NORMAL); POLYCHROMASIA 2.3 % (0.0-1.9); SCAN/DIFF FINAL DIFF MANUAL; TARGET CELLS 1+ (NORMAL)
[2017-01-05 11:03] LABS: POTASSIUM 6.6 MEQ/L (3.5-5.1)
[2017-01-05] MEDS ORDERED: SODIUM BICARBONATE 8.4% INJ 50 ML ONE (11:07)
--- NOTE | 2017-01-05 11:21 | HHI.HCPN ---
Reason for visit a. To assist with evaluation and management of symptoms including: pain; dyspnea; constipation/diarrhea; lower extermity swelling. b. To assist medical decision maker(s) with: better understanding of current medical conditions; weighing benefits/burdens of medical treatment options; making medical treatment decisions. . Subjective/Interval History Dramatic change overnight -- patient remained painful but became hypotensive and is now in the SICU. Hg back at 6 suggesting internal bleeding. Critical care has been consulted. Critical care placed a left subclavian central line. Patient is acidotic and a bicarb drip has been ordered. Critical care spoke withe patient's sister (health care surrogate) and code status has been changed to DNR. Dr. Angeles saw pt last night when he was still hemodynamically stable. She believes patient has metastatic disease to the liver which is probably from the original gastric cancer. She discussed the option of chemotherapy and how it would require a liver biopsy . She indicated that it may not prolong life, but it might help with symptom management. Patient was agreable to go forward with liver biopsy. At time of my visit patient is sleeping soundly ( he was given midalozam at time of central line placement). He was reportedly verbal and quite painful at time or transfer to the SICU. Sister is at bedside. . Family/friend interactions Discussed code status choice with sister and she affirms that she has spoken about this with the patient previously and whe would not want resuscitative efforts. We spoke about the patient's current condition and how we would not be able to consider a biopsy until he became stable. He is going to require blood transfusions and IV fluids and medications if we are going to try and stabilize him. We spoke about how if we were able to get him through this and he wanted chemotherapy he would have to get through the biopsy and agree to regular oncology visits, lab work, etc. Sister , at this time , agrees to transfusions, if necessary and the IV medications. She wants to see how he responds to this before making any further decisions. . Advance Directives Living Will: Never completed Health Care Surrogate: Copy in medical record Durable Power of Geneticist: Never completed Advance Directive Specifics Date completed: Health Care surrogate designation completed 01/04/17. . Health Care Surrogate(s): Patient designated his sister, Sherly Zee as primary health care surrogate and son, Timmy Schwarz JR as alternate. * Sherly Zee- [phone] * Timmy EDGAR- [phone] . Documented care wishes: No written documentation of health care preferences/goals . Significant change in goals: Health care surrogate has chosen to make him DNR on 01/05/17 . Objective Vital Signs Date Time Temp Pulse Resp B/P Pulse Ox O2 Delivery O2 Flow Rate FiO2 01/05/17 09:10 98 Simple Mask 6.00 01/05/17 09:00 98.0 90 13 89/52 99 01/05/17 09:00 98.0 90 13 89/52 99 01/05/17 08:15 Simple Mask 6.00 01/05/17 08:15 200 01/05/17 06:05 99 20 94/58 90 94/58 01/05/17 04:00 97.5 120 24 97/58 88 01/05/17 03:41 21 01/05/17 00:49 18 01/05/17 00:00 Room Air 01/05/17 00:00 97.4 108 17 93/63 96 01/04/17 20:10 Room Air 01/04/17 20:00 99.0 64 18 131/70 93 01/04/17 20:00 103 01/04/17 16:10 97.6 103 18 114/70 99 01/04/17 16:00 Room Air 01/04/17 12:00 97.5 93 18 126/75 99 01/04/17 12:00 Room Air Intake & Output 01/05/17 01/05/17 06:59 18:59 Intake Total 706 ml Output Total 880 ml Balance -174 ml Intake Oral 240 ml IV Total 466 ml Output Urine Total 880 ml # Bowel Movements 0 . Physical Exam CONSTITUTIONAL/GENERAL: This is a thin cacechtic appearing male , sleeping ( recently given midazolam) in an SICU bed. No apparent distress. TUBES/LINES/DRAINS: Peripheral IV; 02 via mask; condom cath; leftg subclavian central line. SKIN: No jaundice, rashes, or lesions. No wounds seen anteriorly. Skin temperature appropriate. Not diaphoretic. HEAD: Atraumatic. Normocephalic. EYES: Pupils equal and round. No scleral icterus. No injection or drainage. Fundi not examined. ENT: Unable to assess hearing. Nose without bleeding or purulent drainage. Throat without visible erythema, exudates, masses, or lesions. NECK: Trachea midline. CARDIOVASCULAR: Regular rate and rhythm without murmurs, gallops, or rubs. No JVD. Peripheral pulses symmetric and weak. RESPIRATORY/CHEST: Symmetric, unlabored respirations. Clear to auscultation. Breath sounds equal bilaterally-- decreased air movement at bases. No wheezes, rales, or rhonchi. GASTROINTESTINAL: Abdomen is firm and distended. Sleeps through exam. Unable to palpate isolated masses or organomegaly . BS not heard. GENITOURINARY: Without palpable bladder distension. Condom cath in place. MUSCULOSKELETAL: Extremities without clubbing, cyanosis, or edema. No joint tenderness or effusion noted. No calf tenderness. No mottling. LYMPHATICS: Not examined. NEUROLOGICAL: Sleeping-sedated. withdraws to stimulus. PSYCHIATRIC: Unable to assess due to sedation. . Diagnostic Tests Laboratory Laboratory Tests Test 01/03/17 01/03/17 01/04/17 01/04/17 15:15 16:00 01:23 05:15 White Blood Count 7.5 TH/MM3 7.9 TH/MM3 (4.0-11.0) (4.0-11.0) Red Blood Count 3.20 MIL/MM3 3.30 MIL/MM3 (4.50-5.90) (4.50-5.90) Hemoglobin 9.3 GM/DL 9.9 GM/DL (13.0-17.0) (13.0-17.0) Hematocrit 29.8 % 31.2 % (39.0-51.0) (39.0-51.0) Mean Corpuscular Volume 93.4 FL 94.6 FL (80.0-100.0) (80.0-100.0) Mean Corpuscular Hemoglobin 29.0 PG 30.0 PG (27.0-34.0) (27.0-34.0) Mean Corpuscular Hemoglobin 31.1 % 31.7 % Concent (32.0-36.0) (32.0-36.0) Red Cell Distribution Width 18.2 % 18.5 % (11.6-17.2) (11.6-17.2) Platelet Count 226 TH/MM3 219 TH/MM3 (150-450) (150-450) Mean Platelet Volume 8.2 FL 7.6 FL (7.0-11.0) (7.0-11.0) Neutrophils (%) (Auto) 70.2 % 77.3 % (16.0-70.0) (16.0-70.0) Lymphocytes (%) (Auto) 11.6 % 10.1 % (9.0-44.0) (9.0-44.0) Monocytes (%) (Auto) 16.4 % 12.1 % (0.0-8.0) (0.0-8.0) Eosinophils (%) (Auto) 0.3 % (0.0-4.0) 0.0 % (0.0-4.0) Basophils (%) (Auto) 1.5 % (0.0-2.0) 0.5 % (0.0-2.0) Neutrophils # (Auto) 5.3 TH/MM3 6.1 TH/MM3 (1.8-7.7) (1.8-7.7) Lymphocytes # (Auto) 0.9 TH/MM3 0.8 TH/MM3 (1.0-4.8) (1.0-4.8) Monocytes # (Auto) 1.2 TH/MM3 1.0 TH/MM3 (0-0.9) (0-0.9) Eosinophils # (Auto) 0.0 TH/MM3 0.0 TH/MM3 (0-0.4) (0-0.4) Basophils # (Auto) 0.1 TH/MM3 0.0 TH/MM3 (0-0.2) (0-0.2) CBC Comment DIFF FINAL AUTO DIFF Differential Comment AUTO DIFF CONFIRMED Sodium Level 139 MEQ/L 138 MEQ/L 139 MEQ/L (136-145) (136-145) (136-145) Potassium Level 4.3 MEQ/L 5.8 MEQ/L 5.1 MEQ/L (3.5-5.1) (3.5-5.1) (3.5-5.1) Chloride Level 108 MEQ/L 107 MEQ/L 107 MEQ/L (98-107) (98-107) (98-107) Carbon Dioxide Level 13.9 MEQ/L 11.9 MEQ/L 12.6 MEQ/L (21.0-32.0) (21.0-32.0) (21.0-32.0) Anion Gap 17 MEQ/L (5-15) 19 MEQ/L (5-15) 19 MEQ/L (5-15) Blood Urea Nitrogen 33 MG/DL (7-18) 36 MG/DL (7-18) 36 MG/DL (7-18) Creatinine 2.53 MG/DL 2.54 MG/DL 2.71 MG/DL (0.60-1.30) (0.60-1.30) (0.60-1.30) Estimat Glomerular Filtration 31 ML/MIN (>89) 31 ML/MIN (>89) 28 ML/MIN (>89) Rate Random Glucose 73 MG/DL 71 MG/DL 85 MG/DL (74-106) (74-106) (74-106) Calcium Level 6.2 MG/DL 6.9 MG/DL 7.5 MG/DL (8.5-10.1) (8.5-10.1) (8.5-10.1) Protein Corrected Calcium 6.2 MG/DL 7.0 MG/DL (8.5-10.1) (8.5-10.1) Total Bilirubin 1.0 MG/DL 1.1 MG/DL (0.2-1.0) (0.2-1.0) Aspartate Amino Transf 601 U/L (15-37) 936 U/L (15-37) (AST/SGOT) Alanine Aminotransferase 101 U/L (12-78) 153 U/L (12-78) (ALT/SGPT) Alkaline Phosphatase 508 U/L 494 U/L (45-117) (45-117) Total Protein 7.2 GM/DL 7.0 GM/DL 7.3 GM/DL (6.4-8.2) (6.4-8.2) (6.4-8.2) Albumin 2.1 GM/DL 2.1 GM/DL (3.4-5.0) (3.4-5.0) Lipase 206 U/L (73-393) Urine Color YELLOW (YELLW/STRAW) Urine Turbidity HAZY (CLEAR) Urine pH 5.5 (5.0-8.5) Urine Specific [place] 1.023 (1.002-1.035) Urine Protein 30 mg/dL (NEG-TRACE) Urine Glucose (UA) NEG mg/dL (NEG) Urine Ketones NEG mg/dL (NEG) Urine Occult Blood SMALL (NEG) Urine Nitrite NEG (NEG) Urine Bilirubin NEG (NEG) Urine Urobilinogen 4.0 MG/DL (LESS THAN 2.0) Urine Leukocyte Esterase NEG (NEG) Urine RBC 2 /hpf (0-3) Urine WBC 4 /hpf (0-5) Urine Squamous Epithelial 1 /hpf (0-5) Cells Urine Amorphous Sediment RARE Urine Bacteria OCC /hpf (NONE) Urine Hyaline Casts 17 /lpf (RARE) Urine Mucus FEW /lpf (OCC) Microscopic Urinalysis Comment CULT NOT INDICATED Platelet Estimate NORMAL (NORMAL) Platelet Morphology Comment NORMAL (NORMAL) Target Cells 1+ (NORMAL) Ovalocytes 1+ (NORMAL) Keratocytes OCC (NORMAL) Test 01/04/17 01/04/17 01/04/17 01/04/17 11:10 14:29 18:29 21:22 Sodium Level 138 MEQ/L 142 MEQ/L 140 MEQ/L 140 MEQ/L (136-145) (136-145) (136-145) (136-145) Potassium Level 4.3 MEQ/L 4.2 MEQ/L 4.5 MEQ/L 5.0 MEQ/L (3.5-5.1) (3.5-5.1) (3.5-5.1) (3.5-5.1) Chloride Level 105 MEQ/L 108 MEQ/L 106 MEQ/L 106 MEQ/L (98-107) (98-107) (98-107) (98-107) Carbon Dioxide Level 17.5 MEQ/L 15.3 MEQ/L 15.7 MEQ/L 17.2 MEQ/L (21.0-32.0) (21.0-32.0) (21.0-32.0) (21.0-32.0) Anion Gap 16 MEQ/L (5-15) 19 MEQ/L (5-15) 18 MEQ/L (5-15) 17 MEQ/L (5-15) Blood Urea Nitrogen 36 MG/DL (7-18) 37 MG/DL (7-18) 37 MG/DL (7-18) 43 MG/DL (7- 18) Creatinine 2.53 MG/DL 2.73 MG/DL 2.76 MG/DL 2.89 MG/DL (0.60-1.30) (0.60-1.30) (0.60-1.30) (0.60-1.30) Estimat Glomerular Filtration 31 ML/MIN (>89) 28 ML/MIN (>89) 28 ML/MIN (>89) 26 ML/MIN (>89) Rate Random Glucose 58 MG/DL 124 MG/DL 84 MG/DL 94 MG/DL (74-106) (74-106) (74-106) (74-106) Calcium Level 8.4 MG/DL 6.7 MG/DL 8.1 MG/DL 8.0 MG/DL (8.5-10.1) (8.5-10.1) (8.5-10.1) (8.5-10.1) Protein Corrected Calcium 6.9 MG/DL (8.5-10.1) Total Protein 6.8 GM/DL (6.4-8.2) Ferritin 1758 NG/ML (26-388) Vitamin B12 Level GREATER THAN 2000 PG/ML (193-986) Test 01/05/17 01/05/17 01/05/17 08:29 08:57 10:02 Prothrombin Time 21.3 SEC (9.8-11.6) Prothromb Time International 1.9 RATIO Ratio Activated Partial 40.8 SEC Thromboplast Time (24.3-30.1) Blood Gas Puncture Site RT RADIAL Blood Gas Patient Temperature 98.6 Blood Gas HCO3 8 mmol/L (22-26) Blood Gas Base Excess -18.6 mmol/L (-2-2) Blood Gas Oxygen Saturation 97 % (90-100) Arterial Blood pH 7.18 (7.380-7.420) Arterial Blood Partial 23 mmHg (38-42) Pressure CO2 Arterial Blood Partial 198 mmHg Pressure O2 (61-120) Arterial Blood Oxygen Content 9.0 Vol % (12.0-20.0) Arterial Blood 1.1 % (0-4) Carboxyhemoglobin Arterial Blood Methemoglobin 1.2 % (0-2) Blood Gas Hemoglobin 6.2 G/DL (12.0-16.0) Oxygen Delivery Device SIMPLE MASK Blood Gas Liter Flow 6 L/M White Blood Count 8.7 TH/MM3 (4.0-11.0) Red Blood Count 2.01 MIL/MM3 (4.50-5.90) Hemoglobin 6.0 GM/DL (13.0-17.0) Hematocrit 20.0 % (39.0-51.0) Mean Corpuscular Volume 99.4 FL (80.0-100.0) Mean Corpuscular Hemoglobin 29.8 PG (27.0-34.0) Mean Corpuscular Hemoglobin 30.0 % Concent (32.0-36.0) Red Cell Distribution Width 19.1 % (11.6-17.2) Platelet Count 143 TH/MM3 (150-450) Mean Platelet Volume 7.8 FL (7.0-11.0) Neutrophils (%) (Auto) 80.4 % (16.0-70.0) Lymphocytes (%) (Auto) 7.6 % (9.0-44.0) Monocytes (%) (Auto) 11.3 % (0.0-8.0) Eosinophils (%) (Auto) 0.1 % (0.0-4.0) Basophils (%) (Auto) 0.6 % (0.0-2.0) Neutrophils # (Auto) 7.0 TH/MM3 (1.8-7.7) Lymphocytes # (Auto) 0.7 TH/MM3 (1.0-4.8) Monocytes # (Auto) 1.0 TH/MM3 (0-0.9) Eosinophils # (Auto) 0.0 TH/MM3 (0-0.4) Basophils # (Auto) 0.0 TH/MM3 (0-0.2) CBC Comment AUTO DIFF . Result Diagram: 01/05/17 1002 01/04/172121 Imaging Last Impressions Abdomen X-Ray 01/05/17 0820 Signed Impressions: Service Date/Time: Thursday, January 05, 2017 08:44 - CONCLUSION: 1. Nonspecific bowel gas pattern with general paucity of bowel gas with no dilated loops. 2. Please see chest radiograph report for abnormality that may represent a left-sided pneumothorax. Marky Marcos MD Chest X-Ray 01/05/17 0000 Signed Impressions: Service Date/Time: Thursday, January 05, 2017 08:48 - CONCLUSION: 1. Lucency in the left lower lung zone laterally extending to the chest wall is likely artifactual although a small subpulmonic pneumothorax cannot be excluded. Consider formal PA and lateral views of the chest or slightly rotated view for better evaluation. 2. Stable elevation of the right hemidiaphragm with right basilar atelectasis. Marky Marcos MD Abdomen/Pelvis CT 01/03/17 1733 Signed Impressions: Service Date/Time: Tuesday, January 03, 2017 18:21 - CONCLUSION: 1. Hepatomegaly and ill-defined hepatic masses are suspected diffusely and concerning for metastatic disease. This is incompletely evaluated without contrast. 2. Postsurgical changes to the stomach with reflux of contrast into the esophagus. 3. Right basilar atelectasis versus airspace disease. 4. Ascites. 5. Mild dilatation of the pancreatic duct identified. Fredy Horn MD Lower Extremity Ultrasound 01/03/17 0000 Signed Impressions: Service Date/Time: Tuesday, January 03, 2017 21:52 - CONCLUSION: Normal examination. Fredy Horn MD . Procedures * Left subclavian central line placement . Assessment and Plan Disease Oriented Problem List: (1) Gastric adenocarcinoma (2) Liver masses Comment: Probable metastatic disease. . (3) Low bicarbonate level (4) Hypocalcemia (5) Anemia Comment: Probable internal bleeding -- ? from anastamosis? . Symptom Scale: (1) Abdominal pain 0-10 Scale: Unable to quantify (2) Dyspnea 0-10 Scale: Unable to quantify Comment: Cause of dyspnea is uncertain. From enalrged liver? . . Pertinent Non-Medical Issues Psychosocial: Local sister Sherly Zee is primary source of psychosocial support. Spiritual: Restorationism -- declines psychiatric tech visit. Legal: Health care surrogate is in place. Ethical issues impacting care: recommend major decision making be done in conjunction with sister -- Sherly zee. . Important Contacts * Gunjan Zee (sister; health care surrogate) [phone] . Prognosis Patient is 71 yrs old and appears to have metastatic disease to the liver. Unclear if the liver mets are secondary to the patient's original gastric cancer or if this is from a new primary. Patient has gone into shock (probably hypovolemic from internal bleeding) and is now in SICU. . . Code Status: No Code Plan == Code Status: NO CODE == Decision maker: Patient is now incapacitated to make his own decisions . His sister is the health care surrogate - Sherly galvin. == Goals of treatment: Health care surrogate is considering options at this time. She is supportive of transfusions and IV meds at this time to see if patient is able to awaken and guide his own treatments if shock is treated. == Pain : Pain is mostly crampy and abdominal. Does not appear to be relieved by moving bowels. Has not het had good pain control. Sister reports patient needs to eat small amounts and soft foods otherwise he gets bad cramping. No further orders at this time. == Dyspnea: Cause of dyspnea is uncertain. May be from combination of abdominal distension (enlarged liver); anemia; COPD. Oxygenating OK currently on 02 via mask. No further recommendations at this time. == Anorexia: Appetite is down. There has been weight loss. Probably due to the cancer. Could try mirtazapine at night for sleep, depression, and appetite once shock is treated. == Constipation/diarrhea: Pt reportedly has been having alternating constipation / diarrhea since his partial gastrectomy in 2016. May be helped by a consistent soft diet and small frequent feeds. Opiates for pain will likely slow bowels down. No further recommendations at this time. == Spoke with Dr. Hwang . == Pallaitive care will continue to follow to assist with symptom management and to further address goals of medical treatment as the clinical course evolves. . Time Spent Total Floor Time (mins): 45 (Total floor time included chart review, patient exam, bedside talk regarding goals with health care surrogate, dicussion of case with designer architect, documentation. ) Face to Face Time (mins): 20 >50% Counseling/Coord of Care: Yes Attestation To help prompt me to consider important information that might be impacting today's encounter and assessment, information from prior notes written by myself or my colleagues may have been "brought forward" into today's note. My signature on this note, however, is an attestation that I personally performed the exam, history, and/or decision-making noted today, and, unless otherwise indicated, the interactions with patient, family, and staff as well as the review of records all occurred today. I also attest that the listed assessment and stated plan reflect my best clinical judgment today based on the combination of historical information, prior notes, and today's exam/ interactions. When time spent is documented, it refers only to time spent today by the signer, or if indicated, combined time spent today by collaborating physician/nurse practitioner. . Clayton Fox MD Jan 05, 2017 11:21
--- NOTE | 2017-01-05 11:21 | RADRPT ---
EXAM DATE/TIME: 01/05/2017 10:12 [facility] COMPARISON: No previous studies available for comparison. INDICATIONS : Chest pain. MEDICAL HISTORY : Cardiovascular disease. Carcinoma, gastric. Congestive heart failure SURGICAL HISTORY : Stomach. ENCOUNTER: Subsequent ACUITY: 3 days PAIN SCORE: Non-responsive. LOCATION: Bilateral chest FINDINGS: A single view of the chest demonstrates the left subclavian central line is in good position. Right hemidiaphragm remains elevated. Mild right basilar atelectasis. Lungs are grossly clear. Heart and mediastinum unremarkable. CONCLUSION: Lungs are clear. Minimal atelectasis right lung base. Raffi Villarreal MD on January 05, 2017 at 11:10 Board Certified Radiologist. This report was verified electronically.
[2017-01-05 11:52] LABS: TOTAL BILIRUBIN ADULT 0.9 MG/DL (0.2-1.0)
[2017-01-05] MEDS: SODIUM BICARBONATE 8.4% INJ 150 MEQ in DEXTROSE 5% IN WATE 1000ML INJ 1,000 ML IV SCH ×4 (11:52→23:18)
[2017-01-05] MEDS ORDERED: CALCIUM GLUCONATE INJ 2 GM in SODIUM CHLORIDE 0.9% INJ 100 ML IV ONE (12:30)
[2017-01-05] MEDS: PANTOPRAZOLE SODIUM 40 MG VIAL IV SCH ×2 (13:34→21:00)
--- NOTE | 2017-01-05 19:46 | PD.ONC.PN ---
Subjective Subjective Remarks Events overnight noted. Pt made DNR. Off sedation. Objective Data Date Time Temp Pulse Resp B/P Pulse Ox O2 Delivery O2 Flow Rate FiO2 01/05/17 18:23 99.5 109 27 93/52 95 01/05/17 18:00 96 Simple Mask 6.00 01/05/17 18:00 96 01/05/17 16:00 72 01/05/17 16:00 93.6 72 20 86/48 96 01/05/17 14:00 91 01/05/17 14:00 91 01/05/17 13:00 93.6 91 17 92/53 97 01/05/17 12:00 86 11 100/55 98 01/05/17 12:00 98 Simple Mask 6.00 01/05/17 12:00 86 01/05/17 09:10 98 Simple Mask 6.00 01/05/17 09:00 98.0 90 13 89/52 99 01/05/17 09:00 98.0 90 13 89/52 99 01/05/17 08:15 Simple Mask 6.00 01/05/17 08:15 200 01/05/17 06:05 99 20 94/58 90 94/58 01/05/17 04:00 97.5 120 24 97/58 88 01/05/17 03:41 21 01/05/17 00:49 18 01/05/17 00:00 Room Air 01/05/17 00:00 97.4 108 17 93/63 96 01/04/17 20:10 Room Air 01/04/17 20:00 99.0 64 18 131/70 93 01/04/17 20:00 103 01/05/17 01/05/17 01/05/17 06:59 14:59 22:59 Intake Total 706 ml 2370 ml Output Total 580 ml 50 ml Balance 126 ml 2320 ml Result Diagram: 01/05/17 1002 01/05/17 1002 Laboratory Results Laboratory Tests Test 01/04/17 01/05/17 01/05/17 01/05/17 21:22 08:29 08:57 10:02 Sodium Level 140 MEQ/L 142 MEQ/L Potassium Level 5.0 MEQ/L 6.6 MEQ/L Chloride Level 106 MEQ/L 107 MEQ/L Carbon Dioxide Level 17.2 MEQ/L 9.4 MEQ/L Anion Gap 17 MEQ/L 26 MEQ/L Blood Urea Nitrogen 43 MG/DL 46 MG/DL Creatinine 2.89 MG/DL 3.72 MG/DL Estimat Glomerular Filtration 26 ML/MIN 20 ML/MIN Rate Random Glucose 94 MG/DL 83 MG/DL Calcium Level 8.0 MG/DL 7.0 MG/DL Ferritin 1758 NG/ML Vitamin B12 Level GREATER THAN 2000 PG/ML Prothrombin Time 21.3 SEC Prothromb Time International 1.9 RATIO Ratio Activated Partial 40.8 SEC Thromboplast Time Blood Gas Puncture Site RT RADIAL Blood Gas Patient Temperature 98.6 Blood Gas HCO3 8 mmol/L Blood Gas Base Excess -18.6 mmol/L Blood Gas Oxygen Saturation 97 % Arterial Blood pH 7.18 Arterial Blood Partial 23 mmHg Pressure CO2 Arterial Blood Partial 198 mmHg Pressure O2 Arterial Blood Oxygen Content 9.0 Vol % Arterial Blood 1.1 % Carboxyhemoglobin Arterial Blood Methemoglobin 1.2 % Blood Gas Hemoglobin 6.2 G/DL Oxygen Delivery Device SIMPLE MASK Blood Gas Liter Flow 6 L/M White Blood Count 8.7 TH/MM3 Red Blood Count 2.01 MIL/MM3 Hemoglobin 6.0 GM/DL Hematocrit 20.0 % Mean Corpuscular Volume 99.4 FL Mean Corpuscular Hemoglobin 29.8 PG Mean Corpuscular Hemoglobin 30.0 % Concent Red Cell Distribution Width 19.1 % Platelet Count 143 TH/MM3 Mean Platelet Volume 7.8 FL Neutrophils (%) (Auto) 80.4 % Lymphocytes (%) (Auto) 7.6 % Monocytes (%) (Auto) 11.3 % Eosinophils (%) (Auto) 0.1 % Basophils (%) (Auto) 0.6 % Neutrophils # (Auto) 7.0 TH/MM3 Lymphocytes # (Auto) 0.7 TH/MM3 Monocytes # (Auto) 1.0 TH/MM3 Eosinophils # (Auto) 0.0 TH/MM3 Basophils # (Auto) 0.0 TH/MM3 CBC Comment AUTO DIFF Differential Total Cells 100 Counted Neutrophils % (Manual) 69 % Band Neutrophils % 7 % Lymphocytes % 8 % Monocytes % 12 % Neutrophils # (Manual) 6.8 TH/MM3 Myelocytes 2 % Nucleated Red Blood Cells 1 /100 WBC Differential Comment FINAL DIFF MANUAL Plasma Cells 2 % Platelet Estimate NORMAL Platelet Morphology Comment NORMAL Polychromasia 2.3 % Target Cells 1+ Protein Corrected Calcium 7.8 MG/DL Total Bilirubin 0.9 MG/DL Aspartate Amino Transf 1919 U/L (AST/SGOT) Alanine Aminotransferase 307 U/L (ALT/SGPT) Alkaline Phosphatase 311 U/L Total Protein 5.6 GM/DL Albumin 1.6 GM/DL Blood Type O POSITIVE Antibody Screen NEGATIVE Crossmatch Leukocyte-Reduced Red Blood Cells Blood Bank Comment Test 01/05/17 11:29 Blood Type O POSITIVE Imaging Studies Last 24 hours Impressions Abdomen X-Ray 01/05/17 0820 Signed Impressions: Service Date/Time: Thursday, January 05, 2017 08:44 - CONCLUSION: 1. Nonspecific bowel gas pattern with general paucity of bowel gas with no dilated loops. 2. Please see chest radiograph report for abnormality that may represent a left-sided pneumothorax. Marky Marcos MD Chest X-Ray 01/05/17 0000 Signed Impressions: Service Date/Time: Thursday, January 05, 2017 10:12 - CONCLUSION: Lungs are clear. Minimal atelectasis right lung base. Raffi Villarreal MD Chest X-Ray 01/05/17 0000 Signed Impressions: Service Date/Time: Thursday, January 05, 2017 08:48 - CONCLUSION: 1. Lucency in the left lower lung zone laterally extending to the chest wall is likely artifactual although a small subpulmonic pneumothorax cannot be excluded. Consider formal PA and lateral views of the chest or slightly rotated view for better evaluation. 2. Stable elevation of the right hemidiaphragm with right basilar atelectasis. Marky Marcos MD Administered Medications Medications (Trade) Dose Ordered Sig/Musa Route PRN Reason Start Time Stop Time Status Last Admin Dose Admin Sodium Chloride (NS Flush) 2 ml BID IV FLUSH 01/03/17 21:00 01/05/17 08:20 Calcium Carbonate (Oscal) 1,000 mg Q12HR PO 01/04/17 09:00 01/04/17 20:10 Tamsulosin HCl (Flomax) 0.4 mg HS PO 01/04/17 21:00 Hold 01/04/17 20:10 Oxycodone/ Acetaminophen (Percocet 10-325 Mg) 1 tab Q4H PRN PO PAIN SCALE 6 TO 10 01/04/17 14:15 01/05/17 03:47 Hydromorphone HCl 1 mg 1 mg Q4H PRN IV PUSH BREAKTHROUGH PAIN 01/04/17 14:15 01/05/17 05:40 Sodium Bicarbonate/ Dextrose (Sodium Bicarbonate 8.4% Inj/D5W 1000 ml Inj) 1,150 ml @ 50 mls/hr Q23H IV 01/05/17 22:00 01/05/17 11:52 Pantoprazole Sodium (Protonix Inj) 40 mg Q12HR IV 01/05/17 09:15 01/05/17 13:34 Objective Remarks GENERAL: Cachectic man, tired appearing, on VEnti mask. well-developed patient. SKIN: Warm and dry. HEAD: Normocephalic. Lethargic arousable but non verbal. EYES: No scleral icterus. No injection or drainage. NECK: Supple, trachea midline. No JVD or lymphadenopathy. LYMPHATIC: No adenopathy. CARDIOVASCULAR: Regular rate and rhythm without murmurs. RESPIRATORY: Breath sounds equal bilaterally. No accessory muscle use. GASTROINTESTINAL: RUQ mass, hepatomegaly. EXTREMITIES: No cyanosis, or edema. MUSCULOSKELETAL: Adequate muscle tone. Assessment/Plan Problem List: (1) Gastric adenocarcinoma Status: Acute Plan: Suspect metastatic disease. Hgb 6.0 and hypotension, pt with bleeding. Noted decision to make DNR, sister surrogate assisting to make decisions. Palliative care consulted, waiting to see if pt can participate in his decision making. KPS worsen, unlikely to be a candidate for palliative chemotherapy Assessment 71 y/o man with gastric cancer s/p partial gastrectomy w/o adjuvant therapy. Present with recurrence suspected, decompensation with bleed. Plan 1. Agree with DNR, would support pt and sister's decision to move towards hospice care 2. Called pt's sister HCS, and explained oncology perspective, answered questions. 3. Supportive care in ICU continue Meagan Angeles MD Jan 05, 2017 19:46
[2017-01-06 00:04] LABS: APTT (PATIENT) 40.5 SEC (24.3-30.1); INTERNATIONAL NORMALIZED RATIO 2.3 RATIO; PROTHROMBIN TIME - PATIENT 26.8 SEC (9.8-11.6)
[2017-01-06 00:17] LABS: AUTOMATED NEUTROPHIL # 2.9 TH/MM3 (1.8-7.7); BASOPHIL % 0.3 % (0.0-2.0); EOSINOPHIL % 0.1 % (0.0-4.0); HEMATOCRIT 29.8 % (39.0-51.0); LYMPH % 14.4 % (9.0-44.0); LYMPHOCYTE # 0.6 TH/MM3 (1.0-4.8); MEAN CELL VOLUME 90.3 FL (80.0-100.0); MEAN CORPUSCULAR HEMOGLOBIN 29.5 PG (27.0-34.0); MEAN CORPUSCULAR HGB CONC 32.6 % (32.0-36.0); MONO % 18.6 % (0.0-8.0); NEUT % 66.6 % (16.0-70.0); PLATELET COUNT 85 TH/MM3 (150-450); RED CELL DISTRIBUTION WIDTH 17.7 % (11.6-17.2); WHITE BLOOD COUNT 4.3 TH/MM3 (4.0-11.0)
[2017-01-06 01:00] VITALS: PULSE 100
[2017-01-06 01:13] LABS: HEMO FLAGS AUTO DIFF
[2017-01-06 01:18] LABS: BANDS 10 % (0-6); CORRECTED NUCLEATED RBC 3 /100 WBC (0-0); METAMYELOCYTES 15 % (0-1); MYELOCYTES 1 % (0-0); NEUTROPHIL # MANUAL DIFF 2.8 TH/MM3 (1.8-7.7); PLATELET ESTIMATE SMEAR LOW (NORMAL); POLYS (SEG NEUTROPHILS) 39 % (16-70); SCAN/DIFF FINAL DIFF MANUAL; WBC DIFF SAMPLE 100
[2017-01-06 01:19] LABS: PLATELET MORPHOLOGY NORMAL (NORMAL)
[2017-01-06 01:20] LABS: TARGET CELLS 1+ (NORMAL)
[2017-01-06 01:22] LABS: ACANTHOCYTES OCC (NORMAL); POLYCHROMASIA 3.6 % (0.0-1.9)
[2017-01-06 03:00] VITALS: BP 91/55; PULSE 95; RESP 19; TEMP 98.5; O2SAT 99
[2017-01-06] MEDS ORDERED: CHLORHEXIDINE GLUCONATE 2 % 1 PACK (2 CLOTHS) TOP SCH (04:00)
[2017-01-06 05:00] VITALS: PULSE 97
--- NOTE | 2017-01-06 06:26 | HHI.CCPN ---
Subjective Remarks/Hospital Course 71-year-old man with history of hypertension, benign prostatic hypertrophy, COPD. Gastrectomy last November 2015 for poorly differentiated adenocarcinoma. He declined adjuvant therapy. He did well for several months until he became increasingly short of breath. He was brought into the emergency department complaining of severe abdominal distension and shortness of breath. He also had lower extremity swelling. Now transferred to [facility] with shock requiring aggressive iv infusions. Marked metabolic acidosis, possibly exacerbated by lower GI losses. Sister (Health Care surrogate) arrived to bedside and expressed wish for DNR status. Update: He continues to deteriorate. Dr. Fox, the sister and I have clarified goals. We will transfuse some blood and keep him comfortable. No vasopressors, dialysis, etc. 01/06: Continued slow GI bleed in patient with metastatic adenocarcinoma and clinical deterioration over past several months. His sister is his health surrogate and requests that we avoid aggressive measures aside from transfusions and hydration. She would like him kept comfortable. His abdomen is firm and appears painful to him. Objective Vital Signs Date Time Temp Pulse Resp B/P Pulse Ox O2 Delivery O2 Flow Rate FiO2 01/06/17 03:00 98.5 95 19 91/55 99 01/05/17 19:00 Simple Mask 6.00 01/05/17 03:41 21 Intake and Output 01/05/17 01/05/17 01/06/17 08:00 16:00 00:00 Intake Total 706 ml 2370 ml 2296 ml Output Total 580 ml 50 ml 50 ml Balance 126 ml 2320 ml 2246 ml Result Diagram: 01/05/17 2347 01/05/17 1002 Other Results Laboratory Tests Test 01/05/17 08:57 Blood Gas Puncture Site RT RADIAL Blood Gas Patient Temperature 98.6 Blood Gas HCO3 8 mmol/L (22-26) Blood Gas Base Excess -18.6 mmol/L (-2-2) Blood Gas Oxygen Saturation 97 % (90-100) Arterial Blood pH 7.18 (7.380-7.420) Arterial Blood Partial 23 mmHg (38-42) Pressure CO2 Arterial Blood Partial 198 mmHg Pressure O2 (61-120) Arterial Blood Oxygen Content 9.0 Vol % (12.0-20.0) Arterial Blood 1.1 % (0-4) Carboxyhemoglobin Arterial Blood Methemoglobin 1.2 % (0-2) Blood Gas Hemoglobin 6.2 G/DL (12.0-16.0) Oxygen Delivery Device SIMPLE MASK Blood Gas Liter Flow 6 L/M Objective Remarks P 120, BP 85/50, R 18, sats 92% Gen: Cachectic, ill-appearing elderly man. Head: Normal. Neck: Supple, airway widely patent. Lungs: Clear, no wheezes or crackles. Mildly labored. Heart: NL S1S2, no m,r. Neck veins flat. Abdomen: Firm and distended. Liver hard and large. No peritoneal irritation. Quiet. Tender to palpation with voluntary guarding. Extremities: Tepid, perfused. Neuro: Lethargic, mumbling. Moves 4 limbs weakly. ONUR. A/P Assessment and Plan Assessment: 1. Circulatory Shock, hypovolemia. 2. Metastatic Gastric Cancer, adenocarcinoma. 3. Metabolic Acidosis. Plan: 1. Place CVL for bicarb gtt. 2. IV hydration. 3. Condom catheter. 4. Protonix. 5. Hold lovenox. 6. SCDs. 7. Claify care goals with consult team. 8. Analgesia prn. Overall impression: Hypovolemic shock probably from GI losses and bleeding from gut. Remains critically ill at this time. Continue fluid resuscitation and coag correction while clarifying care goals. Critical care 39 mins aside from procedures. Tarun Hwang MD Jan 06, 2017 06:26
[2017-01-06] MEDS ORDERED: HYDROmorphone HCL PF 1 MG/ML VIAL IV PUSH PRN (06:30)
[2017-01-06 06:44] LABS: HEMATOCRIT 27.4 % (39.0-51.0); MEAN CELL VOLUME 88.6 FL (80.0-100.0); MEAN CORPUSCULAR HEMOGLOBIN 28.9 PG (27.0-34.0); MEAN CORPUSCULAR HGB CONC 32.7 % (32.0-36.0); PLATELET COUNT 83 TH/MM3 (150-450); RED CELL DISTRIBUTION WIDTH 17.8 % (11.6-17.2); WHITE BLOOD COUNT 5.8 TH/MM3 (4.0-11.0)
[2017-01-06 06:50] LABS: HEMO FLAGS AUTO DIFF
[2017-01-06 07:44] LABS: BICARBONATE 16.7 MEQ/L (21.0-32.0); MAGNESIUM 1.7 MG/DL (1.5-2.5); TOTAL BILIRUBIN ADULT 2.7 MG/DL (0.2-1.0)
[2017-01-06 07:48] LABS: CALCIUM-PROTEIN CORRECTED 6.2 MG/DL (8.5-10.1)
[2017-01-06 08:00] VITALS: BP 84/49; PULSE 89; RESP 20; TEMP 98.7; O2SAT 98
[2017-01-06 08:41] LABS: BANDS 27 % (0-6); CORRECTED NUCLEATED RBC 7 /100 WBC (0-0); METAMYELOCYTES 2 % (0-1); NEUTROPHIL # MANUAL DIFF 4.4 TH/MM3 (1.8-7.7); POLYS (SEG NEUTROPHILS) 46 % (16-70); WBC DIFF SAMPLE 100
[2017-01-06 08:42] LABS: KERATOCYTES 1+ (NORMAL); OVALOCYTES 1+ (NORMAL); TARGET CELLS 1+ (NORMAL); TEARDROP RBCS 1+ (NORMAL)
[2017-01-06 08:43] LABS: PLATELET ESTIMATE SMEAR LOW (NORMAL); PLATELET MORPHOLOGY NORMAL (NORMAL); SCAN/DIFF FINAL DIFF MANUAL
[2017-01-06 08:46] VITALS: O2SAT 98
[2017-01-06] MEDS: HYDROmorphone HCL PF 1 MG/ML VIAL IV PUSH PRN (08:51)
[2017-01-06] MEDS: PANTOPRAZOLE SODIUM 40 MG VIAL IV SCH (08:52)
[2017-01-06] MEDS: CALCIUM CARBONATE 1.25 GM (CA 500 MG) TAB PO SCH (09:00)
--- NOTE | 2017-01-06 10:55 | HHI.HCPN ---
Reason for visit a. To assist with evaluation and management of symptoms including: pain; dyspnea; constipation/diarrhea; lower extremity swelling. b. To assist medical decision maker(s) with: better understanding of current medical conditions; weighing benefits/burdens of medical treatment options; making medical treatment decisions. . Subjective/Interval History Patient remains in the SICU. When awake, he is moaning and clearly uncomfortable per nursing staff. He has been medicated with IV hydromorphone prior to my visit. He appears more comfortable. He turns to voice, but is non- verbal. Patient is passing stool with bright red blood. He has been transfused with 2 units of PRBCs and is receiving FFP at time of my visit. Hg. Went up to 9.7 following transfusion last night and is down to 9.0 this AM. In spite of blood and fluids, patient remains hypotensive. Oncology f/u note noted. Given sudden decline, patient is now felt unlikely to be a candidate for palliative chemotherapy. . Family/friend interactions Spoke with patient's sister (Ms. Zee -- the health care surrogate) by phone. We discussed the patient's decline, his current condition, and the discussion she has had with the oncologist. We discussed options going forward. We discussed his current level of discomfort. I spoke of my concern that ongoing aggressive care at this time might only serve to prolong a painful dying process. She is in agreement. Hospice services were offered. She agreed to a hospice consult. An order was placed. . Advance Directives Living Will: Never completed Health Care Surrogate: Copy in medical record Durable Power of Online Media Buyer: Never completed Advance Directive Specifics Date completed: Health Care surrogate designation completed 01/04/17. . Health Care Surrogate(s): Patient designated his sister, Sherly Zee as primary health care surrogate and son, Timmy Schwarz JR as alternate. * Sherly Zee- [phone] * Timmy EDGAR- [phone] . Documented care wishes: No written documentation of health care preferences/goals . Significant change in goals: Sister has agreed to a hospice consult with a plan to transition to "comfort measures only." . Objective Vital Signs Date Time Temp Pulse Resp B/P Pulse Ox O2 Delivery O2 Flow Rate FiO2 01/06/17 09:20 96 Simple Mask 6.00 01/06/17 08:46 98 Simple Mask 6.00 01/06/17 08:00 98.7 89 20 84/49 98 01/06/17 05:00 97 01/06/17 03:00 98.5 95 19 91/55 99 01/06/17 03:00 95 01/06/17 01:00 100 01/05/17 23:00 112 01/05/17 23:00 97.8 112 21 85/54 98 01/05/17 21:00 111 01/05/17 21:00 99.1 111 25 93/51 94 01/05/17 19:00 96 Simple Mask 6.00 01/05/17 19:00 99.5 107 27 97/53 96 01/05/17 18:23 99.5 109 27 93/52 95 01/05/17 18:00 96 Simple Mask 6.00 01/05/17 18:00 96 01/05/17 16:00 72 01/05/17 16:00 93.6 72 20 86/48 96 01/05/17 14:00 91 01/05/17 14:00 91 01/05/17 13:00 93.6 91 17 92/53 97 01/05/17 12:00 86 11 100/55 98 01/05/17 12:00 98 Simple Mask 6.00 01/05/17 12:00 86 Intake & Output 01/06/17 01/06/17 07:00 19:00 Intake Total 2641 ml Output Total 90 ml Balance 2551 ml IV Total 1097 ml Packed Cells 1544 ml Output Urine Total 90 ml # Bowel Movements 2 . Physical Exam CONSTITUTIONAL/GENERAL: This is a thin cacechtic appearing male ; eyes open and will slowly turn to voice but non-verbal other than intermittent moan. TUBES/LINES/DRAINS: Peripheral IV; 02 via mask; condom cath; left subclavian central line; SCDs SKIN: No jaundice, rashes, or lesions. No wounds seen anteriorly. Skin temperature appropriate. Not diaphoretic. EYES: Pupils equal and round. No scleral icterus. No injection or drainage. Fundi not examined. ENT: Turns to voice. Nose without bleeding or purulent drainage. Throat without visible erythema, exudates, masses, or lesions. NECK: Trachea midline. CARDIOVASCULAR: Regular rate and rhythm without murmurs, gallops, or rubs. No JVD. RESPIRATORY/CHEST: Symmetric, unlabored respirations. Clear to auscultation. Breath sounds equal bilaterally-- decreased air movement at bases. No wheezes, rales, or rhonchi. GASTROINTESTINAL: Abdomen is firm and distended. Grimaces with abdominal palpation. Unable to palpate isolated masses or organomegaly . BS present. GENITOURINARY: Without palpable bladder distension. Condom cath in place. MUSCULOSKELETAL: Extremities without clubbing, cyanosis, or edema. No joint tenderness or effusion noted. No calf tenderness. No mottling. LYMPHATICS: Not examined. NEUROLOGICAL: Lethargic -- recently medicated with hydromorphone. PSYCHIATRIC: Unable to assess due to sedation. . Diagnostic Tests Laboratory Laboratory Tests Test 01/03/17 01/03/17 01/04/17 01/04/17 15:15 16:00 01:23 05:15 White Blood Count 7.5 TH/MM3 7.9 TH/MM3 (4.0-11.0) (4.0-11.0) Red Blood Count 3.20 MIL/MM3 3.30 MIL/MM3 (4.50-5.90) (4.50-5.90) Hemoglobin 9.3 GM/DL 9.9 GM/DL (13.0-17.0) (13.0-17.0) Hematocrit 29.8 % 31.2 % (39.0-51.0) (39.0-51.0) Mean Corpuscular Volume 93.4 FL 94.6 FL (80.0-100.0) (80.0-100.0) Mean Corpuscular Hemoglobin 29.0 PG 30.0 PG (27.0-34.0) (27.0-34.0) Mean Corpuscular Hemoglobin 31.1 % 31.7 % Concent (32.0-36.0) (32.0-36.0) Red Cell Distribution Width 18.2 % 18.5 % (11.6-17.2) (11.6-17.2) Platelet Count 226 TH/MM3 219 TH/MM3 (150-450) (150-450) Mean Platelet Volume 8.2 FL 7.6 FL (7.0-11.0) (7.0-11.0) Neutrophils (%) (Auto) 70.2 % 77.3 % (16.0-70.0) (16.0-70.0) Lymphocytes (%) (Auto) 11.6 % 10.1 % (9.0-44.0) (9.0-44.0) Monocytes (%) (Auto) 16.4 % 12.1 % (0.0-8.0) (0.0-8.0) Eosinophils (%) (Auto) 0.3 % (0.0-4.0) 0.0 % (0.0-4.0) Basophils (%) (Auto) 1.5 % (0.0-2.0) 0.5 % (0.0-2.0) Neutrophils # (Auto) 5.3 TH/MM3 6.1 TH/MM3 (1.8-7.7) (1.8-7.7) Lymphocytes # (Auto) 0.9 TH/MM3 0.8 TH/MM3 (1.0-4.8) (1.0-4.8) Monocytes # (Auto) 1.2 TH/MM3 1.0 TH/MM3 (0-0.9) (0-0.9) Eosinophils # (Auto) 0.0 TH/MM3 0.0 TH/MM3 (0-0.4) (0-0.4) Basophils # (Auto) 0.1 TH/MM3 0.0 TH/MM3 (0-0.2) (0-0.2) CBC Comment DIFF FINAL AUTO DIFF Differential Comment AUTO DIFF CONFIRMED Sodium Level 139 MEQ/L 138 MEQ/L 139 MEQ/L (136-145) (136-145) (136-145) Potassium Level 4.3 MEQ/L 5.8 MEQ/L 5.1 MEQ/L (3.5-5.1) (3.5-5.1) (3.5-5.1) Chloride Level 108 MEQ/L 107 MEQ/L 107 MEQ/L (98-107) (98-107) (98-107) Carbon Dioxide Level 13.9 MEQ/L 11.9 MEQ/L 12.6 MEQ/L (21.0-32.0) (21.0-32.0) (21.0-32.0) Anion Gap 17 MEQ/L (5-15) 19 MEQ/L (5-15) 19 MEQ/L (5-15) Blood Urea Nitrogen 33 MG/DL (7-18) 36 MG/DL (7-18) 36 MG/DL (7-18) Creatinine 2.53 MG/DL 2.54 MG/DL 2.71 MG/DL (0.60-1.30) (0.60-1.30) (0.60-1.30) Estimat Glomerular Filtration 31 ML/MIN (>89) 31 ML/MIN (>89) 28 ML/MIN (>89) Rate Random Glucose 73 MG/DL 71 MG/DL 85 MG/DL (74-106) (74-106) (74-106) Calcium Level 6.2 MG/DL 6.9 MG/DL 7.5 MG/DL (8.5-10.1) (8.5-10.1) (8.5-10.1) Protein Corrected Calcium 6.2 MG/DL 7.0 MG/DL (8.5-10.1) (8.5-10.1) Total Bilirubin 1.0 MG/DL 1.1 MG/DL (0.2-1.0) (0.2-1.0) Aspartate Amino Transf 601 U/L (15-37) 936 U/L (15-37) (AST/SGOT) Alanine Aminotransferase 101 U/L (12-78) 153 U/L (12-78) (ALT/SGPT) Alkaline Phosphatase 508 U/L 494 U/L (45-117) (45-117) Total Protein 7.2 GM/DL 7.0 GM/DL 7.3 GM/DL (6.4-8.2) (6.4-8.2) (6.4-8.2) Albumin 2.1 GM/DL 2.1 GM/DL (3.4-5.0) (3.4-5.0) Lipase 206 U/L (73-393) Urine Color YELLOW (YELLW/STRAW) Urine Turbidity HAZY (CLEAR) Urine pH 5.5 (5.0-8.5) Urine Specific [place] 1.023 (1.002-1.035) Urine Protein 30 mg/dL (NEG-TRACE) Urine Glucose (UA) NEG mg/dL (NEG) Urine Ketones NEG mg/dL (NEG) Urine Occult Blood SMALL (NEG) Urine Nitrite NEG (NEG) Urine Bilirubin NEG (NEG) Urine Urobilinogen 4.0 MG/DL (LESS THAN 2.0) Urine Leukocyte Esterase NEG (NEG) Urine RBC 2 /hpf (0-3) Urine WBC 4 /hpf (0-5) Urine Squamous Epithelial 1 /hpf (0-5) Cells Urine Amorphous Sediment RARE Urine Bacteria OCC /hpf (NONE) Urine Hyaline Casts 17 /lpf (RARE) Urine Mucus FEW /lpf (OCC) Microscopic Urinalysis Comment CULT NOT INDICATED Platelet Estimate NORMAL (NORMAL) Platelet Morphology Comment NORMAL (NORMAL) Target Cells 1+ (NORMAL) Ovalocytes 1+ (NORMAL) Keratocytes OCC (NORMAL) Test 01/04/17 01/04/17 01/04/17 01/04/17 11:10 14:29 18:29 21:22 Sodium Level 138 MEQ/L 142 MEQ/L 140 MEQ/L 140 MEQ/L (136-145) (136-145) (136-145) (136-145) Potassium Level 4.3 MEQ/L 4.2 MEQ/L 4.5 MEQ/L 5.0 MEQ/L (3.5-5.1) (3.5-5.1) (3.5-5.1) (3.5-5.1) Chloride Level 105 MEQ/L 108 MEQ/L 106 MEQ/L 106 MEQ/L (98-107) (98-107) (98-107) (98-107) Carbon Dioxide Level 17.5 MEQ/L 15.3 MEQ/L 15.7 MEQ/L 17.2 MEQ/L (21.0-32.0) (21.0-32.0) (21.0-32.0) (21.0-32.0) Anion Gap 16 MEQ/L (5-15) 19 MEQ/L (5-15) 18 MEQ/L (5-15) 17 MEQ/L (5-15) Blood Urea Nitrogen 36 MG/DL (7-18) 37 MG/DL (7-18) 37 MG/DL (7-18) 43 MG/DL (7- 18) Creatinine 2.53 MG/DL 2.73 MG/DL 2.76 MG/DL 2.89 MG/DL (0.60-1.30) (0.60-1.30) (0.60-1.30) (0.60-1.30) Estimat Glomerular Filtration 31 ML/MIN (>89) 28 ML/MIN (>89) 28 ML/MIN (>89) 26 ML/MIN (>89) Rate Random Glucose 58 MG/DL 124 MG/DL 84 MG/DL 94 MG/DL (74-106) (74-106) (74-106) (74-106) Calcium Level 8.4 MG/DL 6.7 MG/DL 8.1 MG/DL 8.0 MG/DL (8.5-10.1) (8.5-10.1) (8.5-10.1) (8.5-10.1) Protein Corrected Calcium 6.9 MG/DL (8.5-10.1) Total Protein 6.8 GM/DL (6.4-8.2) Ferritin 1758 NG/ML (26-388) Vitamin B12 Level GREATER THAN 2000 PG/ML (193-986) Test 01/05/17 01/05/17 01/05/17 01/05/17 08:29 08:57 10:02 11:29 Prothrombin Time 21.3 SEC (9.8-11.6) Prothromb Time International 1.9 RATIO Ratio Activated Partial 40.8 SEC Thromboplast Time (24.3-30.1) Blood Gas Puncture Site RT RADIAL Blood Gas Patient Temperature 98.6 Blood Gas HCO3 8 mmol/L (22-26) Blood Gas Base Excess -18.6 mmol/L (-2-2) Blood Gas Oxygen Saturation 97 % (90-100) Arterial Blood pH 7.18 (7.380-7.420) Arterial Blood Partial 23 mmHg (38-42) Pressure CO2 Arterial Blood Partial 198 mmHg Pressure O2 (61-120) Arterial Blood Oxygen Content 9.0 Vol % (12.0-20.0) Arterial Blood 1.1 % (0-4) Carboxyhemoglobin Arterial Blood Methemoglobin 1.2 % (0-2) Blood Gas Hemoglobin 6.2 G/DL (12.0-16.0) Oxygen Delivery Device SIMPLE MASK Blood Gas Liter Flow 6 L/M White Blood Count 8.7 TH/MM3 (4.0-11.0) Red Blood Count 2.01 MIL/MM3 (4.50-5.90) Hemoglobin 6.0 GM/DL (13.0-17.0) Hematocrit 20.0 % (39.0-51.0) Mean Corpuscular Volume 99.4 FL (80.0-100.0) Mean Corpuscular Hemoglobin 29.8 PG (27.0-34.0) Mean Corpuscular Hemoglobin 30.0 % Concent (32.0-36.0) Red Cell Distribution Width 19.1 % (11.6-17.2) Platelet Count 143 TH/MM3 (150-450) Mean Platelet Volume 7.8 FL (7.0-11.0) Neutrophils (%) (Auto) 80.4 % (16.0-70.0) Lymphocytes (%) (Auto) 7.6 % (9.0-44.0) Monocytes (%) (Auto) 11.3 % (0.0-8.0) Eosinophils (%) (Auto) 0.1 % (0.0-4.0) Basophils (%) (Auto) 0.6 % (0.0-2.0) Neutrophils # (Auto) 7.0 TH/MM3 (1.8-7.7) Lymphocytes # (Auto) 0.7 TH/MM3 (1.0-4.8) Monocytes # (Auto) 1.0 TH/MM3 (0-0.9) Eosinophils # (Auto) 0.0 TH/MM3 (0-0.4) Basophils # (Auto) 0.0 TH/MM3 (0-0.2) CBC Comment AUTO DIFF Differential Total Cells 100 Counted Neutrophils % (Manual) 69 % (16-70) Band Neutrophils % 7 % (0-6) Lymphocytes % 8 % (9-44) Monocytes % 12 % (0-8) Neutrophils # (Manual) 6.8 TH/MM3 (1.8-7.7) Myelocytes 2 % (0-0) Nucleated Red Blood Cells 1 /100 WBC (0-0) Differential Comment FINAL DIFF MANUAL Plasma Cells 2 % (0-0) Platelet Estimate NORMAL (NORMAL) Platelet Morphology Comment NORMAL (NORMAL) Polychromasia 2.3 % (0.0-1.9) Target Cells 1+ (NORMAL) Sodium Level 142 MEQ/L (136-145) Potassium Level 6.6 MEQ/L (3.5-5.1) Chloride Level 107 MEQ/L (98-107) Carbon Dioxide Level 9.4 MEQ/L (21.0-32.0) Anion Gap 26 MEQ/L (5-15) Blood Urea Nitrogen 46 MG/DL (7-18) Creatinine 3.72 MG/DL (0.60-1.30) Estimat Glomerular Filtration 20 ML/MIN (>89) Rate Random Glucose 83 MG/DL (74-106) Calcium Level 7.0 MG/DL (8.5-10.1) Protein Corrected Calcium 7.8 MG/DL (8.5-10.1) Total Bilirubin 0.9 MG/DL (0.2-1.0) Aspartate Amino Transf 1919 U/L (AST/SGOT) (15-37) Alanine Aminotransferase 307 U/L (12-78) (ALT/SGPT) Alkaline Phosphatase 311 U/L (45-117) Total Protein 5.6 GM/DL (6.4-8.2) Albumin 1.6 GM/DL (3.4-5.0) Blood Type O POSITIVE O POSITIVE Antibody Screen NEGATIVE Crossmatch Leukocyte-Reduced Red Blood Cells Blood Bank Comment Test 01/05/17 01/05/17 01/06/17 01/06/17 23:30 23:47 06:18 06:20 Prothrombin Time 26.8 SEC (9.8-11.6) Prothromb Time International 2.3 RATIO Ratio Activated Partial 40.5 SEC Thromboplast Time (24.3-30.1) White Blood Count 4.3 TH/MM3 5.8 TH/MM3 (4.0-11.0) (4.0-11.0) Red Blood Count 3.30 MIL/MM3 3.10 MIL/MM3 (4.50-5.90) (4.50-5.90) Hemoglobin 9.7 GM/DL 9.0 GM/DL (13.0-17.0) (13.0-17.0) Hematocrit 29.8 % 27.4 % (39.0-51.0) (39.0-51.0) Mean Corpuscular Volume 90.3 FL 88.6 FL (80.0-100.0) (80.0-100.0) Mean Corpuscular Hemoglobin 29.5 PG 28.9 PG (27.0-34.0) (27.0-34.0) Mean Corpuscular Hemoglobin 32.6 % 32.7 % Concent (32.0-36.0) (32.0-36.0) Red Cell Distribution Width 17.7 % 17.8 % (11.6-17.2) (11.6-17.2) Platelet Count 85 TH/MM3 83 TH/MM3 (150-450) (150-450) Mean Platelet Volume 8.6 FL 7.6 FL (7.0-11.0) (7.0-11.0) Neutrophils (%) (Auto) 66.6 % % (16.0-70.0) (16.0-70.0) Lymphocytes (%) (Auto) 14.4 % % (9.0-44.0) (9.0-44.0) Monocytes (%) (Auto) 18.6 % % (0.0-8.0) (0.0-8.0) Eosinophils (%) (Auto) 0.1 % (0.0-4.0) % (0.0-4.0) Basophils (%) (Auto) 0.3 % (0.0-2.0) % (0.0-2.0) Neutrophils # (Auto) 2.9 TH/MM3 TH/MM3 (1.8-7.7) (1.8-7.7) Lymphocytes # (Auto) 0.6 TH/MM3 TH/MM3 (1.0-4.8) (1.0-4.8) Monocytes # (Auto) 0.8 TH/MM3 TH/MM3 (0-0.9) (0-0.9) Eosinophils # (Auto) 0.0 TH/MM3 TH/MM3 (0-0.4) (0-0.4) Basophils # (Auto) 0.0 TH/MM3 TH/MM3 (0-0.2) (0-0.2) CBC Comment AUTO DIFF AUTO DIFF Differential Total Cells 100 100 Counted Neutrophils % (Manual) 39 % (16-70) 46 % (16-70) Band Neutrophils % 10 % (0-6) 27 % (0-6) Lymphocytes % 20 % (9-44) 5 % (9-44) Monocytes % 15 % (0-8) 20 % (0-8) Neutrophils # (Manual) 2.8 TH/MM3 4.4 TH/MM3 (1.8-7.7) (1.8-7.7) Metamyelocytes 15 % (0-1) 2 % (0-1) Myelocytes 1 % (0-0) Nucleated Red Blood Cells 3 /100 WBC 7 /100 WBC (0-0) (0-0) Differential Comment FINAL DIFF FINAL DIFF MANUAL MANUAL Atypical Lymphocytes % (0-0) Platelet Estimate LOW (NORMAL) LOW (NORMAL) Platelet Morphology Comment NORMAL NORMAL (NORMAL) (NORMAL) Polychromasia 3.6 % (0.0-1.9) Target Cells 1+ (NORMAL) 1+ (NORMAL) Acanthocytes OCC (NORMAL) Blood Bank Comment Tear Drop Cells 1+ (NORMAL) Ovalocytes 1+ (NORMAL) Keratocytes 1+ (NORMAL) Sodium Level 144 MEQ/L (136-145) Potassium Level 7.0 MEQ/L (3.5-5.1) Chloride Level 104 MEQ/L (98-107) Carbon Dioxide Level 16.7 MEQ/L (21.0-32.0) Anion Gap 23 MEQ/L (5-15) Blood Urea Nitrogen 54 MG/DL (7-18) Creatinine 4.90 MG/DL (0.60-1.30) Estimat Glomerular Filtration 14 ML/MIN (>89) Rate Random Glucose 97 MG/DL (74-106) Lactic Acid Level 10.1 mmol/L (0.4-2.0) Calcium Level 5.5 MG/DL (8.5-10.1) Protein Corrected Calcium 6.2 MG/DL (8.5-10.1) Phosphorus Level 8.2 MG/DL (2.5-4.9) Magnesium Level 1.7 MG/DL (1.5-2.5) Total Bilirubin 2.7 MG/DL (0.2-1.0) Aspartate Amino Transf 67290 U/L (AST/SGOT) (15-37) Alanine Aminotransferase 1796 U/L (ALT/SGPT) (12-78) Alkaline Phosphatase 783 U/L (45-117) Total Protein 5.5 GM/DL (6.4-8.2) Albumin 1.8 GM/DL (3.4-5.0) . Result Diagram: 01/06/1761901/06/17619 Imaging Last Impressions Abdomen X-Ray 01/05/17 0820 Signed Impressions: Service Date/Time: Thursday, January 05, 2017 08:44 - CONCLUSION: 1. Nonspecific bowel gas pattern with general paucity of bowel gas with no dilated loops. 2. Please see chest radiograph report for abnormality that may represent a left-sided pneumothorax. Marky Marcos MD Chest X-Ray 01/05/17 0000 Signed Impressions: Service Date/Time: Thursday, January 05, 2017 10:12 - CONCLUSION: Lungs are clear. Minimal atelectasis right lung base. Raffi Villarreal MD Abdomen/Pelvis CT 01/03/17 1733 Signed Impressions: Service Date/Time: Tuesday, January 03, 2017 18:21 - CONCLUSION: 1. Hepatomegaly and ill-defined hepatic masses are suspected diffusely and concerning for metastatic disease. This is incompletely evaluated without contrast. 2. Postsurgical changes to the stomach with reflux of contrast into the esophagus. 3. Right basilar atelectasis versus airspace disease. 4. Ascites. 5. Mild dilatation of the pancreatic duct identified. Fredy Horn MD Lower Extremity Ultrasound 01/03/17 0000 Signed Impressions: Service Date/Time: Tuesday, January 03, 2017 21:52 - CONCLUSION: Normal examination. Fredy Horn MD . Procedures * Left subclavian central line placement . Assessment and Plan Disease Oriented Problem List: (1) Gastric adenocarcinoma (2) Liver masses Comment: Probable metastatic disease. . (3) Low bicarbonate level (4) Hypocalcemia (5) GI bleed Comment: Source unclear, but possibly from partial gastrectomy anastamosis. . (6) Anemia Comment: From GI bleeding. Still passing stools with bright red blood. . Symptom Scale: (1) Abdominal pain 0-10 Scale: 10 Comment: Appears very painful to nursing staff. Helped with IV hydromorphone. . (2) Dyspnea 0-10 Scale: Unable to quantify Comment: Cause of dyspnea is uncertain. From enalrged liver? . . Pertinent Non-Medical Issues Psychosocial: Local sister Sherly Zee is primary source of psychosocial support. Spiritual: Shinto -- declines air duct mechanic visit. Legal: Health care surrogate is in place. Ethical issues impacting care: recommend major decision making be done in conjunction with sister -Ashley zee. . Important Contacts * Gunjan Zee (sister; health care surrogate) [phone] . Prognosis Patient is 71 yrs old and appears to have metastatic disease to the liver. Unclear if the liver mets are secondary to the patient's original gastric cancer or if this is from a new primary. Patient has gone into shock (probably hypovolemic from internal bleeding) and is now in SICU. No longer felt to be a candidate for palliative chemotherapy. likely within hours to days. . . . Code Status: No Code Plan == Code Status: NO CODE == Decision maker: Patient is now incapacitated to make his own decisions . His sister is the health care surrogate - Sherly galvin. == Goals of treatment: After discussion with health care surrogate on she has agreed to transition to "comfort measures only" and has agreed to a hospice consult. == Pain : Pain is mostly crampy and abdominal. Does not appear to be relieved by moving bowels. Pain management is currently requiring iv hydromorphone. Amount of medication needed to provide comfort is such that he is quite lethargic. Good comfort oders already put in place by custom home installer. No further orders at this time. == Dyspnea: Cause of dyspnea is uncertain. May be from combination of abdominal distension (enlarged liver); anemia; COPD. Oxygenating OK currently on 02 via mask. No further recommendations at this time. == Anorexia: Appetite is down. There has been weight loss. Probably due to the cancer. Anticipate soon. No further recommendations at this time. == Constipation/diarrhea: Pt reportedly has been having alternating constipation / diarrhea since his partial gastrectomy in 2016. Moot at this time. == Spoke with Dr. Hwang and made him aware of hospice decision. == Placed order for hospice consult. . . Attestation To help prompt me to consider important information that might be impacting today's encounter and assessment, information from prior notes written by myself or my colleagues may have been "brought forward" into today's note. My signature on this note, however, is an attestation that I personally performed the exam, history, and/or decision-making noted today, and, unless otherwise indicated, the interactions with patient, family, and staff as well as the review of records all occurred today. I also attest that the listed assessment and stated plan reflect my best clinical judgment today based on the combination of historical information, prior notes, and today's exam/ interactions. When time spent is documented, it refers only to time spent today by the signer, or if indicated, combined time spent today by collaborating physician/nurse practitioner. . Clayton Fox MD Jan 06, 2017 10:55
--- NOTE | 2017-01-06 17:49 | HHI.DS ---
Discharge Summary Admission Date Jan 03, 2017 at 19:06 Discharge Date: Jan 06, 2017 Admitting Diagnosis abdominal pain, metastatic adenocarcinoma, hypocalcemia, acute on ch (1) Metastatic adenocarcinoma ICD Code: C79.9 Diagnosis: Principal (2) Abdominal pain ICD Code: R10.9 Diagnosis: Principal (3) Hypocalcemia ICD Code: E83.51 Diagnosis: Secondary (4) Lower extremity edema ICD Code: R60.0 Diagnosis: Secondary (5) Dyspnea ICD Code: R06.00 Diagnosis: Secondary (6) Low bicarbonate level ICD Code: E87.8 Diagnosis: Secondary Brief History Written by KARIN Harris acting as scribe for [Daily] on 01/03/17 at 21: 06. 71 y/o male with a history of gastric cancer, htn, bph, and copd presented to the ED with complaints of sob all the time, and swelling in his legs for the last 2 months. He denies any abdominal pain, nausea or vomiting, He states he has chronic diarrhea since his gastrectomy. He also complains of red stools in the toilet bowel. Patient is a poor historian and is unable to recall recent events, patient did receive Dilaudid prior to examination and may be contributing to the usableness to recall information. He denies any chest pain, or calf pain. Patient states he lives alone. CBC/BMP: 01/06/17 0620 01/06/17 0620 Significant Findings Laboratory Tests Test 01/04/17 01/04/17 01/04/17 01/04/17 01:23 05:15 11:10 14:29 Potassium Level 5.8 MEQ/L (3.5-5.1) Carbon Dioxide Level 11.9 MEQ/L 12.6 MEQ/L 17.5 MEQ/L 15.3 MEQ/L (21.0-32.0) (21.0-32.0) (21.0-32.0) (21.0-32.0) Anion Gap 19 MEQ/L (5-15) 19 MEQ/L (5-15) 16 MEQ/L (5-15) 19 MEQ/L (5-15) Blood Urea Nitrogen 36 MG/DL (7-18) 36 MG/DL (7-18) 36 MG/DL (7-18) 37 MG/DL (7- 18) Creatinine 2.54 MG/DL 2.71 MG/DL 2.53 MG/DL 2.73 MG/DL (0.60-1.30) (0.60-1.30) (0.60-1.30) (0.60-1.30) Estimat Glomerular Filtration 31 ML/MIN (>89) 28 ML/MIN (>89) 31 ML/MIN (>89) 28 ML/MIN (>89) Rate Random Glucose 71 MG/DL 58 MG/DL 124 MG/DL (74-106) (74-106) (74-106) Calcium Level 6.9 MG/DL 7.5 MG/DL 8.4 MG/DL 6.7 MG/DL (8.5-10.1) (8.5-10.1) (8.5-10.1) (8.5-10.1) Protein Corrected Calcium 7.0 MG/DL 6.9 MG/DL (8.5-10.1) (8.5-10.1) Red Blood Count 3.30 MIL/MM3 (4.50-5.90) Hemoglobin 9.9 GM/DL (13.0-17.0) Hematocrit 31.2 % (39.0-51.0) Mean Corpuscular Hemoglobin 31.7 % Concent (32.0-36.0) Red Cell Distribution Width 18.5 % (11.6-17.2) Neutrophils (%) (Auto) 77.3 % (16.0-70.0) Monocytes (%) (Auto) 12.1 % (0.0-8.0) Lymphocytes # (Auto) 0.8 TH/MM3 (1.0-4.8) Monocytes # (Auto) 1.0 TH/MM3 (0-0.9) Target Cells 1+ (NORMAL) Ovalocytes 1+ (NORMAL) Total Bilirubin 1.1 MG/DL (0.2-1.0) Aspartate Amino Transf 936 U/L (15-37) (AST/SGOT) Alanine Aminotransferase 153 U/L (12-78) (ALT/SGPT) Alkaline Phosphatase 494 U/L (45-117) Albumin 2.1 GM/DL (3.4-5.0) Chloride Level 108 MEQ/L (98-107) Test 01/04/17 01/04/17 01/05/1719/17 18:29 21:22 08:29 08:57 Carbon Dioxide Level 15.7 MEQ/L 17.2 MEQ/L (21.0-32.0) (21.0-32.0) Anion Gap 18 MEQ/L (5-15) 17 MEQ/L (5-15) Blood Urea Nitrogen 37 MG/DL (7-18) 43 MG/DL (7-18) Creatinine 2.76 MG/DL 2.89 MG/DL (0.60-1.30) (0.60-1.30) Estimat Glomerular Filtration 28 ML/MIN (>89) 26 ML/MIN (>89) Rate Calcium Level 8.1 MG/DL 8.0 MG/DL (8.5-10.1) (8.5-10.1) Ferritin 1758 NG/ML (26-388) Vitamin B12 Level GREATER THAN 2000 PG/ML (193-986) Prothrombin Time 21.3 SEC (9.8-11.6) Activated Partial 40.8 SEC Thromboplast Time (24.3-30.1) Blood Gas HCO3 8 mmol/L (22-26) Blood Gas Base Excess -18.6 mmol/L (-2-2) Arterial Blood pH 7.18 (7.380-7.420) Arterial Blood Partial 23 mmHg (38-42) Pressure CO2 Arterial Blood Partial 198 mmHg Pressure O2 (61-120) Arterial Blood Oxygen Content 9.0 Vol % (12.0-20.0) Blood Gas Hemoglobin 6.2 G/DL (12.0-16.0) Test 01/05/17 01/05/17 01/05/17 01/06/17 10:02 23:30 23:47 06:20 Red Blood Count 2.01 MIL/MM3 3.30 MIL/MM3 3.10 MIL/MM3 (4.50-5.90) (4.50-5.90) (4.50-5.90) Hemoglobin 6.0 GM/DL 9.7 GM/DL 9.0 GM/DL (13.0-17.0) (13.0-17.0) (13.0-17.0) Hematocrit 20.0 % 29.8 % 27.4 % (39.0-51.0) (39.0-51.0) (39.0-51.0) Mean Corpuscular Hemoglobin 30.0 % Concent (32.0-36.0) Red Cell Distribution Width 19.1 % 17.7 % 17.8 % (11.6-17.2) (11.6-17.2) (11.6-17.2) Platelet Count 143 TH/MM3 85 TH/MM3 83 TH/MM3 (150-450) (150-450) (150-450) Neutrophils (%) (Auto) 80.4 % (16.0-70.0) Lymphocytes (%) (Auto) 7.6 % (9.0-44.0) Monocytes (%) (Auto) 11.3 % 18.6 % (0.0-8.0) (0.0-8.0) Lymphocytes # (Auto) 0.7 TH/MM3 0.6 TH/MM3 (1.0-4.8) (1.0-4.8) Monocytes # (Auto) 1.0 TH/MM3 (0-0.9) Band Neutrophils % 7 % (0-6) 10 % (0-6) 27 % (0-6) Lymphocytes % 8 % (9-44) 5 % (9-44) Monocytes % 12 % (0-8) 15 % (0-8) 20 % (0-8) Myelocytes 2 % (0-0) 1 % (0-0) Nucleated Red Blood Cells 1 /100 WBC 3 /100 WBC 7 /100 WBC (0-0) (0-0) (0-0) Plasma Cells 2 % (0-0) Polychromasia 2.3 % (0.0-1.9) 3.6 % (0.0-1.9) Target Cells 1+ (NORMAL) 1+ (NORMAL) 1+ (NORMAL) Potassium Level 6.6 MEQ/L 7.0 MEQ/L (3.5-5.1) (3.5-5.1) Carbon Dioxide Level 9.4 MEQ/L 16.7 MEQ/L (21.0-32.0) (21.0-32.0) Anion Gap 26 MEQ/L (5-15) 23 MEQ/L (5-15) Blood Urea Nitrogen 46 MG/DL (7-18) 54 MG/DL (7-18) Creatinine 3.72 MG/DL 4.90 MG/DL (0.60-1.30) (0.60-1.30) Estimat Glomerular Filtration 20 ML/MIN (>89) 14 ML/MIN (>89) Rate Calcium Level 7.0 MG/DL 5.5 MG/DL (8.5-10.1) (8.5-10.1) Protein Corrected Calcium 7.8 MG/DL 6.2 MG/DL (8.5-10.1) (8.5-10.1) Aspartate Amino Transf 1919 U/L 95564 U/L (AST/SGOT) (15-37) (15-37) Alanine Aminotransferase 307 U/L (12-78) 1796 U/L (ALT/SGPT) (12-78) Alkaline Phosphatase 311 U/L 783 U/L (45-117) (45-117) Total Protein 5.6 GM/DL 5.5 GM/DL (6.4-8.2) (6.4-8.2) Albumin 1.6 GM/DL 1.8 GM/DL (3.4-5.0) (3.4-5.0) Prothrombin Time 26.8 SEC (9.8-11.6) Activated Partial 40.5 SEC Thromboplast Time (24.3-30.1) Metamyelocytes 15 % (0-1) 2 % (0-1) Platelet Estimate LOW (NORMAL) LOW (NORMAL) Tear Drop Cells 1+ (NORMAL) Ovalocytes 1+ (NORMAL) Keratocytes 1+ (NORMAL) Lactic Acid Level 10.1 mmol/L (0.4-2.0) Phosphorus Level 8.2 MG/DL (2.5-4.9) Total Bilirubin 2.7 MG/DL (0.2-1.0) Imaging CT Abdomen and CXR - Hepatomegaly with tumor. PE at Discharge GENERAL: thin, malnourished AA male, ill appearing, somnolent SKIN: Cool and dry. HEAD: Atraumatic. Normocephalic. EYES: briefly opens eyes then shuts them back up ENT: Nose without drainage. Airway patent. NECK: Trachea midline. CARDIOVASCULAR: RRR w no obvious murmurs but sounds are very distant RESPIRATORY: appear clear to auscultation GASTROINTESTINAL: Abdomen tense w palpable mass ? liver. no guarding or rebound , do not auscultate bowel sounds. MUSCULOSKELETAL:moving extremities NEUROLOGICAL: somnolent, briefly opens eyes, able to tell me "nothing hurts". Transfer Summary Severely debilitated man with widely metastatic adenocarcinoma and multi-organ dysfunction underwent aggressive fluid and blood resuscitation but continued to decline with hypothermia to 93 degrees and metabolic acidosis, anuria. Family elected Hospice Care and the patient was transferred to the care center. Hospital Course 71-year-old man with history of hypertension, benign prostatic hypertrophy, COPD. Gastrectomy last November 2015 for poorly differentiated adenocarcinoma. He declined adjuvant therapy. He did well for several months until he became increasingly short of breath. He was brought into the emergency department complaining of severe abdominal distension and shortness of breath. He also had lower extremity swelling. Now transferred to [facility] with shock requiring aggressive iv infusions. Marked metabolic acidosis, possibly exacerbated by lower GI losses. Sister (Health Care surrogate) arrived to bedside and expressed wish for DNR status. Update: He continues to deteriorate. Dr. Fox, the sister and I have clarified goals. We will transfuse some blood and keep him comfortable. No vasopressors, dialysis, etc. 01/06: Continued slow GI bleed in patient with metastatic adenocarcinoma and clinical deterioration over past several months. His sister is his health surrogate and requests that we avoid aggressive measures aside from transfusions and hydration. She would like him kept comfortable. His abdomen is firm and appears painful to him. Pt Condition on Discharge: Deteriorating Discharge Disposition: Hospice/Med Facility Discharge Instructions DIET: Follow Instructions for: As Tolerated, No Restrictions Activities you can perform: Continue Bedrest Tarun Hwang MD Jan 06, 2017 17:49
== END 2017-01-06 15:00 | disposition hospice, inpatient (51) | DRG 435 ==
LOC: NEPC 14:09 → NEDA 19:06 → N04B 23:33 → N03A 01-05 08:59
PROVIDERS: ADMIT Surgery Surgical Critical Care; ATTEND Surgery Surgical Critical Care
PROC: 0T9B70Z Drainage of Bladder with Drainage Device, Via Natural or Artificial Opening (ICD-10-PCS; 2017-01-04)
PROC: 30233N1 Transfusion of Nonautologous Red Blood Cells into Peripheral Vein, Percutaneous Approach (ICD-10-PCS; 2017-01-05)
PROC: 05H633Z Insertion of Infusion Device into Left Subclavian Vein, Percutaneous Approach (ICD-10-PCS; 2017-01-05)
PROC: 30233K1 Transfusion of Nonautologous Frozen Plasma into Peripheral Vein, Percutaneous Approach (ICD-10-PCS; principal; 2017-01-06)
DX: C78.7 Secondary malignant neoplasm of liver and intrahepatic bile duct (principal); R57.1 Hypovolemic shock; E87.2 Acidosis; I11.0 Hypertensive heart disease with heart failure; I50.9 Heart failure, unspecified; J98.11 Atelectasis; K92.1 Melena; E83.51 Hypocalcemia; J44.9 Chronic obstructive pulmonary disease, unspecified; D64.9 Anemia, unspecified; Z85.028 Personal history of other malignant neoplasm of stomach; Z90.3 Acquired absence of stomach [part of]; N40.0 Benign prostatic hyperplasia without lower urinary tract symptoms; F17.210 Nicotine dependence, cigarettes, uncomplicated; Z51.5 Encounter for palliative care; R63.0 Anorexia; R63.4 Abnormal weight loss; Z99.81 Dependence on supplemental oxygen; N28.9 Disorder of kidney and ureter, unspecified; Z66 Do not resuscitate
CPT/HCPCS: 36430; 36556; 36600; 71010; 74000; 74176; 76937; 80048; 80053; 81001; 82607; 82728; 82805; 83605; 83690; 83735; 84100; 84155; 85007; 85025; 85027; 85610; 85730; 86850; 86900; 86901; 86920; 86927; 93005; 93970; 96374; 96375; C9113; J0610; J1170; J1815; J2250; J2405; J7030; J7040; J7070; P9016; P9017; Q9963